=== PATIENT | female | born 1945 | race Asian ===

== ENCOUNTER 2021-10-27 13:28 | Emergency (ER) | payer MEDICARE, SELFPAY ==
--- NOTE | 2021-10-27 14:03 | CRLHL7_ITS ---
For Patients: As a result of the Century Cures Act, medical imaging exams and procedure reports are released immediately into your electronic medical record. You may view this report before your referring provider. If you have questions, please contact your health care provider. Indication: Rule out fracture Technique: Volumetric multidetector CT images of the lumbar spine were obtained without the administration of IV contrast. Comparison: None available. Findings: There is vertebra plana deformity of the T11, L1 and L2 levels with somewhat lytic destruction of the anterior aspect of the L1 and L2 levels. There is minimal retropulsion of the posterior L1 and L2 cortices measuring 7.0 and 6.0 millimeters. There is an evolving acute fracture along the anteroinferior L4 level.. There is straightening of the normal lumbar lordosis with mild focal kyphosis of the L1-L2 level. There is moderate to severe degenerative disc disease with disc height loss and marginal osteophyte formation. There is moderate spinal canal narrowing at the L1 and L2 levels. There is moderate bilateral neural foraminal narrowing at the L3-L4 and L4-L5 levels. There is no other displaced fracture or dislocation. The paraspinous soft tissues are grossly within normal limits. Impression: Demonstration of an acute compression fracture of the inferior L4 level. Chronic appearing vertebral plana fractures of the T11, L1 and L2 levels with extensive lytic changes of the anterior aspects of the L1 and L2 vertebral bodies which may represent sequela of infectious or neoplastic changes. Correlate with history of clinical symptoms. Consider follow-up with contrast enhanced MRI for improved characterization. Please note that all CT scans at this facility use dose modulation, iterative reconstruction, and/or weight-based dosing when appropriate to reduce radiation dose to as low as reasonably achievable. Dictated by David Tan MD @ 10/27/2021 3:22:03 PM (Electronically Signed)
--- NOTE | 2021-10-27 14:04 | ED_ITS ---
HPI - General Adult General Time Seen by Provider: 14:04 Date Seen: 10/27/21 Chief complaint: Back Injury/Pain Stated complaint: Back pain Time Seen by Provider: 10/27/21 13:36 Source: patient History of Present Illness HPI narrative: Gila is a 76-year-old female past medical history includes atrial fibrillation on chronic anticoagulation with Xarelto, hypertension, who presents emergency department with lower back pain. Patient states she gets around the house with a walker, at times when she sits down she thinks she hurt her lower back. This occurred about 2-3 days ago, since then she has had worsening lower back pain. Pain is lower lumbar area, midline, there is no radiation of pain, pain only occurs when she ambulates or sits up, no pain when she lays flat or sitting up. She denies any weakness, numbness or tingling of lower extremities, she denies any urinary or bowel incontinence or retention. She denies any pain and lower extremities, she denies any upper back pain, abdominal pain, she denies any urinary or bowel complaints. No history of any back problems, she does have chronic right knee issues. No new falls or injury. No other concerns at this time, she has not taken anything for it. Related Data Home Medications Medication Instructions Recorded Confirmed metoprolol succinate 100 mg 100 mg PO Q12H 10/27/21 10/27/21 tablet,extended release 24 hr potassium chloride 20 mEq 20 meq PO DAILY 10/27/21 10/27/21 tablet,extended release(part/cryst) (Klor-Con M) rivaroxaban 20 mg tablet (Xarelto) 20 mg PO DAILY 10/27/21 10/27/21 torsemide 20 mg tablet 20 mg PO DAILY 10/27/21 10/27/21 Allergies Allergy/AdvReac Type Severity Reaction Status Date / Time No Known Drug Allergies Allergy Verified 10/27/21 13:33 Review of Systems Status of ROS: Reports: 10 or more systems reviewed and unremarkable except as noted in History and below PFSH PFS Social History Smoking Status: Never smoker Second hand tobacco smoke exposure: No How often do you have a drink containing alcohol: never How often do you have six or more drinks on one occasion: Never AUDIT-C Alcohol total score: 0 Non-prescribed substance use: denies use service: No Exam Narrative: Exam Narrative: General: No obvious distress HEENT: Pupils equal round reactive to light, extraocular muscles intact Neck: Supple, full range of motion, nontender cervical spine Lungs: Clear to auscultation bilaterally Heart: Irregular regular Abdomen: Soft nontender, bowel sounds present Muscle skeletal: She is tender to palpation the lower lumbar spine, L1, L2 and L4, no step-offs or saddle anesthesia, straight leg raising at 20? negative bilaterally, +5 strength lower extremities. Normal neuro exam lower extremities. Right lower extremity: Chronic right knee externally rotated, CMS intact. Neuro: Alert awake and oriented x3 Const: Vital Signs, click to edit/add: Vital Signs - 24 hr 10/27/21 14:30 10/27/21 15:00 10/27/21 15:30 Pulse Rate [Pulse Oximeter] 73 74 82 Respiratory Rate 20 Blood Pressure [Le ft Upper Arm] 113/84 103/82 96/67 Pulse Oximetry 95 94 93 10/27/21 16:10 Pulse Rate [Pulse Oximeter] 67 Respiratory Rate 18 Blood Pressure [Le ft Upper Arm] 99/85 Pulse Oximetry 99 Course Course Hospital Course: Workup includes CT lumbar spine without IV contrast rule out compression fractures, will give her 1 g Tylenol orally and placed Lidoderm patch 5% to the area. No worrisome findings on exam, differential diagnosis includes life- threatening of cauda equina and epidural abscess. Other differentials include sprain, contusion, nerve root entrapment, radiculopathy muscle spasm urolithiasis lumbar fracture pyelonephritis as well as other etiologies Reevaluation(s) Reevaluation #1: patient updated on imaging results which showed an acute compression fracture of the inferior L4 level.Chronic appearing vertebral plana fractures of the T11, L1 and L2 levels with extensive lytic changes of the anterior aspects of the L1 and L2 vertebral bodies which may represent sequela of infectious or neoplastic changes.?Discussed further imaging with MRI to further evaluate.. Patient was in agreement. Time: 14:30 Reevaluation #2: patient was updated on her imaging results, MRI lumbar spine showed Acute/subacute compression fractures involving the L1, L2 and L4 vertebral bodies. Vertebral plana appearance of L1 and L2, with mild inferior endplate fracture at L4. Fracture clefts noted within the L1 vertebral body with mild retropulsion of the L1 and L2 vertebral body elements. Appearance favors osteoporotic type compression fracture without specific features to suggest malignancy.At T12-L1, moderate spinal canal narrowing with retropulsed fracture fragments abutting the ventral aspect of the conus medullaris. There may be subtle abnormal cord signal at the conus on the STIR sequences however not definitely reproduced on conventional T2 imaging and may be artifactual. At L1- 2, retropulsion of fracture fragments with mild spinal canal narrowing. Moderate to severe bilateral neural foraminal narrowing. L1-L5 At L1-2, retropulsion of fracture fragments with mild spinal canal narrowing. Moderate to severe bilateral neural foraminal narrowing. This was discussed with patient and significant other, patient does not have any focal neuro deficits cyst of her lower extremities making retropulsion less concerning, when trying to get patient up to try and ambulate she was unable to due to pain. Discussed admitting for observation for PT evaluation and pain control and arrange proper follow up with spine on outpatient basis. Patient declined and patient wishes to the discharged, she agreed to signing AMA after long discussion of risks involved, she is competent in sound to make her own decisions and understands the risks. She states she will follow up properly with her primary care provider. Vital Signs Vital signs: Initial Vital Signs Pulse Rate 73 10/27/21 14:30 Blood Pressure 113/84 10/27/21 14:30 Blood Pressure Mean 93 10/27/21 14:30 Blood Pressure Position Sitting 10/27/21 14:30 Pulse Oximetry 95 10/27/21 14:30 Oxygen Delivery Method 10/27/21 14:30 Vital Signs Pulse Rate 73 10/27/21 14:30 Blood Pressure 113/84 10/27/21 14:30 Pulse Oximetry 95 10/27/21 14:30 Pulse Rate 67 10/27/21 16:10 Respiratory Rate 18 10/27/21 16:10 Blood Pressure 99/85 10/27/21 16:10 Pulse Oximetry 99 10/27/21 16:10 Discharge Plan Discharge Clinical Impression: Lumbar vertebral fracture Qualifiers: Lumbar vertebra fracture level: unspecified lumbar vertebra Fracture morphology: other fracture Patient Disposition: Left Against Medical Advice Prescriptions: No Action potassium chloride [Klor-Con M20] 20 mEq tablet,ER particles/crystals 20 meq PO DAILY 0RF Xarelto 20 mg tablet 20 mg PO DAILY 0RF Label Comments: with evening meal Rx Instructions: must administer with evening meal metoprolol succinate 100 mg tablet extended release 24 hr 100 mg PO Q12H 0RF Label Comments: Take 1 Tablet by mouth 2 times daily torsemide 20 mg tablet 20 mg PO DAILY 0RF Label Comments: Take 1 Tablet by mouth once daily Stand Alone Forms: [facility] Info Instructions
[2021-10-27 14:30] VITALS: BP 113/84; PULSE 73; O2SAT 95
--- NOTE | 2021-10-27 14:33 | ED.NURSE ---
Up to bedside commode, heavy assist of two. Patient not bearing any weight.
[2021-10-27] MEDS: LIDOCAINE 5% PATCH 1 PATCH TOPICAL (14:59)
[2021-10-27] MEDS: ACETAMINOPHEN 500 MG TABLET 1000 MG PO (14:59)
[2021-10-27 15:00] VITALS: BP 103/82; PULSE 74; O2SAT 94
[2021-10-27 15:30] VITALS: BP 96/67; PULSE 82; RESP 20; O2SAT 93
--- NOTE | 2021-10-27 15:36 | CRLHL7_ITS ---
For Patients: As a result of the Century Cures Act, medical imaging exams and procedure reports are released immediately into your electronic medical record. You may view this report before your referring provider. If you have questions, please contact your health care provider. Indication: Lumbar fracture. Technique: T2, T1, and STIR sagittal as well as T1 and T2 axial sequences were obtained. No IV contrast. Comparison: CT lumbar spine 10/27/2021. Findings: There are 5 lumbar type vertebral segments identified. There are acute compression deformities involving the L1, L2 and L4 vertebral bodies. The L1 and L2 vertebral bodies demonstrated vertebral plana appearance. Fracture cleft noted throughout the central aspect of the L1 vertebral body. The L4 vertebral body demonstrates an inferior endplate fracture with approximately 10-20 % vertebral body height loss. The L1 and L2 vertebral bodies demonstrate T1 hypointense marrow edema without extension into the posterior elements. Edema is non infiltrative in appearance. Fracture cleft with fluid noted at L1. Additionally there is no evidence for extensive paraspinal infiltration. There is an additional compression fracture involving the T11 vertebral body, without edema and appears chronic. This also demonstrates a vertebral plana appearance. Exaggerated kyphosis at the L1 level. The conus medullaris terminates at L1-2, normal. Cauda equina appears unremarkable. T12-L1: Retropulsion of L1 fracture fragments into the spinal canal resulting in moderate spinal canal narrowing and abutting the ventral aspect of the conus medullaris. There may be subtle cord signal change at the conus on the STIR sequences, however is not reproduced on the conventional T2 sequences. Severe right with mild left neural foraminal narrowing. L1-2: Retropulsion of vertebral body elements with resultant mild spinal canal narrowing. Moderate to severe bilateral neural foraminal narrowing. L2-3: No spinal canal narrowing. Moderate bilateral neural foraminal narrowing secondary to disc bulge and facet hypertrophy. L3-4: No spinal canal narrowing. Mild to moderate left and mild right neural foraminal narrowing secondary to disc bulging facet hypertrophy. L4-5: No spinal canal narrowing. Moderate to severe left and mild right neural foraminal narrowing secondary to disc bulge and facet hypertrophy. L5-S1: No spinal canal narrowing. Mild bilateral neural foraminal narrowing. Impression: 1. Acute/subacute compression fractures involving the L1, L2 and L4 vertebral bodies. Vertebral plana appearance of L1 and L2, with mild inferior endplate fracture at L4. 2. Fracture clefts noted within the L1 vertebral body with mild retropulsion of the L1 and L2 vertebral body elements. Appearance favors osteoporotic type compression fracture without specific features to suggest malignancy. 3. At T12-L1, moderate spinal canal narrowing with retropulsed fracture fragments abutting the ventral aspect of the conus medullaris. There may be subtle abnormal cord signal at the conus on the STIR sequences however not definitely reproduced on conventional T2 imaging and may be artifactual. 4. At L1-2, retropulsion of fracture fragments with mild spinal canal narrowing. Moderate to severe bilateral neural foraminal narrowing. 5. At L2-3, moderate bilateral neural foraminal narrowing. 6. At L3-4, mild to moderate left and mild right neural foraminal narrowing. 7. At L4-5, moderate to severe left and mild right neural foraminal narrowing. The above findings were communicated over the telephone with Dr. Francis Gabriel by Dr. Patiño at 1747 hours on 10/27/2021. Dictated by Van Patiño MD @ 10/27/2021 5:49:52 PM (Electronically Signed)
[2021-10-27 16:10] VITALS: BP 99/85; PULSE 67; RESP 18; O2SAT 99
--- NOTE | 2021-10-27 18:02 | ED.NURSE ---
dc to home. signed ama. will take tylenol 1000 mg every 8 hours as needed for pain.
== END 2021-10-27 17:50 | disposition left against medical advice (07) ==
PROVIDERS: Emergency Provider Student in an Organized Health Care Education/Training Program; PCP Nurse Practitioner Family
DX: S32.019A Unspecified fracture of first lumbar vertebra, initial encounter for closed fracture (principal); S32.029A Unspecified fracture of second lumbar vertebra, initial encounter for closed fracture
CPT/HCPCS: 72131; 72148; 99283; A9270

== ENCOUNTER 2021-11-08 21:42 | Inpatient (IN) | payer MEDICARE, SELFPAY ==
--- NOTE | 2021-11-08 | CRLHL7_ITS ---
For Patients: As a result of the Century Cures Act, medical imaging exams and procedure reports are released immediately into your electronic medical record. You may view this report before your referring provider. If you have questions, please contact your health care provider. INDICATION: Fall, neck pain. TECHNIQUE: CT cervical spine without contrast. COMPARISON: None FINDINGS: Vertebrae: Limited evaluation secondary to motion artifact, patient body habitus, and osteopenia. No acute displaced fracture or traumatic malalignment. Discs and facet joints: Multilevel endplate degenerative changes, worst at the levels of C5-C7. Anatomic alignment of the bilateral facet joints. Extraspinal findings: Prevertebral soft tissues are within normal limits. Visualized airway is patent. Lung apices are grossly clear. IMPRESSION: Within limitations as above, no evidence of acute displaced fracture or traumatic malalignment of the cervical spine. Please note that all CT scans at this facility use dose modulation, iterative reconstruction, and/or weight-based dosing when appropriate to reduce radiation dose to as low as reasonably achievable. Dictated by Kyle Figueredo MD @ 11/08/2021 11:17:35 PM (Electronically Signed)
--- NOTE | 2021-11-08 | CRLHL7_ITS ---
For Patients: As a result of the Cures Act, medical imaging exams and procedure reports are released immediately into your electronic medical record. You may view this report before your referring provider. If you have questions, please contact your health care provider. INDICATION: Trauma, fall. On blood thinners. TECHNIQUE: CT head without contrast. COMPARISON: None. FINDINGS: Cerebral parenchyma: No evidence of acute territorial infarct. No acute intraparenchymal hemorrhage. No significant mass effect/midline shift. Normal calabrese-white matter differentiation. Extra-axial spaces: No extra-axial collection or hemorrhage. Ventricles: Mild ex vacuo dilation. Calvarium: Small right occipital scalp hematoma. Visualized paranasal sinuses/mastoid air cells: Grossly clear. Posterior fossa: No cerebellar tonsillar herniation. Visualized orbits: Thinning of the left lens. No acute abnormality. IMPRESSION: 1. No acute intracranial abnormality. Specifically, no evidence of acute intracranial hemorrhage. 2. Small right occipital scalp hematoma. Please note that all CT scans at this facility use dose modulation, iterative reconstruction, and/or weight-based dosing when appropriate to reduce radiation dose to as low as reasonably achievable. Dictated by Kyle Figueredo MD @ 11/08/2021 11:08:38 PM (Electronically Signed)
[2021-11-08 21:50] VITALS: BP 135/94
[2021-11-08 21:51] VITALS: BP 135/94; PULSE 85; TEMP 36.3; O2SAT 97; BMI 23.9
[2021-11-08 22:00] VITALS: BP 129/84; PULSE 80; O2SAT 97
[2021-11-08 22:30] VITALS: BP 140/82; PULSE 79; O2SAT 98
[2021-11-08 23:00] VITALS: BP 134/92; PULSE 91; O2SAT 93
--- NOTE | 2021-11-08 23:12 | ED.GENADULT ---
HPI - General Adult General Time Seen by Provider: 21:30 Date Seen: 11/08/21 Chief complaint: Head Injury/Pain Stated complaint: HEAD INJURY Time Seen by Provider: 11/08/21 22:21 Source: patient, family, RN notes reviewed and old records reviewed Mode of arrival: EMS Limitations: no limitations History of Present Illness HPI narrative: Gila is a very pleasant 76-year-old female with known lumbar compression fractures with narrowing of the spinal canal who comes to the emergency room via EMS after having fallen at home. EMS notes that Gila has her mattress on the floor and was trying to transfer to a wheelchair and fell striking the back of her head. Patient is on Xarelto. Fortunately, she did not lose consciousness. She denies neck pain. Gila is very challenging as she minimizes symptoms. Gila was here on October 27 at which time the fractures were discovered. MRI did show narrowing of the spinal canal with some retropulsion of fragments at L1-2. It was suggested that she stay in the hospital but she signed out AMA. This time her becomes quite angry with her and states that she is staying and that if she wants to leave she will have to crawl out on her own. She states that she will stay here tonight if needed. Patient denies neck pain, chest pain, shortness of breath. Her says that she has gotten much weaker since the . It seems that this has been progressive. She denies loss of sensation. Related Data Home Medications Medication Instructions Recorded Confirmed metoprolol succinate 100 mg 100 mg PO Q12H 10/27/21 11/08/21 tablet,extended release 24 hr potassium chloride 20 mEq 20 meq PO DAILY 10/27/21 11/08/21 tablet,extended release(part/cryst) (Klor-Con M) rivaroxaban 20 mg tablet (Xarelto) 20 mg PO DAILY 10/27/21 11/08/21 torsemide 20 mg tablet 20 mg PO DAILY 10/27/21 11/08/21 Allergies Allergy/AdvReac Type Severity Reaction Status Date / Time No Known Drug Allergies Allergy Verified 10/27/21 13:33 Review of Systems Status of ROS: Reports: unobtainable due to mental status Narrative: Patient denies loss of consciousness. She does note the back of her head hurts but denies headache. Patient denies neck pain Patient denies chest pain, shortness of breath, abdominal pain. She does admit that her legs are little bit weaker than before but denies any loss of sensation. Review of systems very challenging as people patient is minimizing symptoms. [facility] Medical History Atrial fibrillation with rapid ventricular response Dementia HFrEF (heart failure with reduced ejection fraction) Hypertension Right knee pain Stage 3 chronic kidney disease Surgical History History of left cataract surgery Social History Narrative: She lives with her . He is her primary caregiver. He reports he has been very difficult due to her immobility. Smoking Status: Never smoker Second hand tobacco smoke exposure: No How often do you have a drink containing alcohol: never How often do you have six or more drinks on one occasion: Never AUDIT-C Alcohol total score: 0 Non-prescribed substance use: denies use service: No Exam Const: Vital Signs, click to edit/add: Vital Signs - 24 hr 11/08/21 21:51 Temperature 97.3 F L Pulse Rate [Right Pulse Oximeter] 85 Blood Pressure [Le ft Upper Arm] 135/94 H Pulse Oximetry 97 Patient is awake and alert. She is very quick to minimize any symptoms. Her eyes are clear and EOM is full. She has some slight cloudiness to the right eye. This is chronic. She has a 2 cm area of edema on her a septal scalp. Skin is intact. Neck is supple without midline tenderness. Heart is with regular rate and rhythm at this time. Lungs are clear bilaterally. Abdomen soft nontender. Upper extremity strength intact. Lower extremities extremity, from eyes. Patient is unable to flex at hips or bend her knees. From the bed. Ankle strength 4/5. Right ankle slightly weaker than left. Scant peripheral edema. Course Course Hospital Course: Review of previous MRI noted to have retropulsed fracture fragments at L1-2 narrowing the canal. There has been ongoing decreasing strength in the lower extremities. Patient initially states that she does not want to stay but her becomes quite a rate and tells her that she will have to crawl out of the hospital if she wants to come home. He agrees to stay for the night. I will speak to Dr. Gramajo about observation with MRI repeat tomorrow morning. Vital Signs Vital signs: Initial Vital Signs Temperature 97.3 F L 11/08/21 21:51 Temperature Source Temporal Artery Scan 11/08/21 21:51 Pulse Rate 85 11/08/21 21:51 Blood Pressure 135/94 H 11/08/21 21:51 Blood Pressure Mean 107 11/08/21 21:51 Blood Pressure Position Supine 11/08/21 21:51 Pulse Oximetry 97 11/08/21 21:51 Oxygen Delivery Method 11/08/21 21:51 Vital Signs Temperature 97.3 F L 11/08/21 21:51 Pulse Rate 85 11/08/21 21:51 Blood Pressure 135/94 H 11/08/21 21:51 Pulse Oximetry 97 11/08/21 21:51 Temperature 97.3 F L 11/08/21 21:51 Pulse Rate 85 11/08/21 21:51 Blood Pressure 135/94 H 11/08/21 21:51 Pulse Oximetry 97 11/08/21 21:51 Medical Decision Making MDM Narrative Medical decision making narrative: 1. Lower extremity weakness-likely secondary to recent multilevel lumbar fractures. Hospitalization with MRI repeat in the morning. This does not appear to be acute this evening. 2. History of congestive heart failure 3. History of atrial fibrillation with RVR currently on Xarelto. Rate controlled this evening with a pulse of 85. 4. Disposition-patient was admitted under the care of Dr. Gramajo, hospitalist.
[2021-11-08 23:30] VITALS: BP 122/107
--- NOTE | 2021-11-08 23:48 | P.IMHP_ITS ---
Hospitalist- H&P: HPI History of Present Illness Date Seen: 11/08/21 Chief complaint: HEAD INJURY Narrative: Gila Carson is a 76 year old female admitted through the emergency room after a fall at home. With that fall she hit her head. She is on anticoagulation. Emergency department evaluation showed no intracranial injury, bleeding or cervical fracture. While she was here her notes that she has been doing very poorly since October 27 when she fell sustaining lumbar com pression fracture. Prior to that fall on October 27 she was getting around with a walker. Since then she has been unable to stand and walk and is wheelchair bound. He believes her weakness is getting progressively worse and he is concerned about his ability to manage her care. She has dementia and has been insisting on going home. Similar circumstance developed last year when she was hospitalized for heart failure in November 2020. She initially left AMA but then returned to the hospital because of difficulty breathing. Her is her primary and only caregiver. He is insisting now that she stay in the hospital against her will. Review of Systems Narrative: Patient denies any concerns or problems. This includes denying that she has any back pain though she refuses to sit up in bed due to pain. Her only concern is to leave the hospital to go home. Her notes that she has generally been doing well except for the disability associated with her back pain and lower extremity weakness. There have been concerns about urinary frequency. On October 18 she had a urinalysis which was normal. She had recent left cataract surgery and is pending right cataract surgery. [facility] Medical History Atrial fibrillation with rapid ventricular response Dementia HFrEF (heart failure with reduced ejection fraction) Hypertension Right knee pain Stage 3 chronic kidney disease Surgical History History of left cataract surgery Social History (Updated 11/08/21 @ 23:59 by Ted Gramajo MD) Narrative: She lives with her . He is her primary caregiver. He reports he has been very difficult due to her immobility. Smoking Status: Never smoker Second hand tobacco smoke exposure: No How often do you have a drink containing alcohol: never How often do you have six or more drinks on one occasion: Never AUDIT-C Alcohol total score: 0 Non-prescribed substance use: denies use service: No Meds Home Medications and Allergies Home Medications Medication Instructions Recorded Confirmed Type metoprolol succinate 100 mg 100 mg PO Q12H 10/27/21 11/08/21 History tablet,extended release 24 hr potassium chloride 20 mEq 20 meq PO DAILY 10/27/21 11/08/21 History tablet,extended release(part/cryst) (Klor-Con M) rivaroxaban 20 mg tablet (Xarelto) 20 mg PO DAILY 10/27/21 11/08/21 History torsemide 20 mg tablet 20 mg PO DAILY 10/27/21 11/08/21 History Allergies Allergy/AdvReac Type Severity Reaction Status Date / Time No Known Drug Allergies Allergy Verified 10/27/21 13:33 Exam Narrative: Exam Narrative: She is alert and appears in no distress. Head is without obvious trauma. Eyes notable for a dense cataract in the right eye and none in the left eye. Extraocular movements are full. Visual davis are intact. There is no facial asymmetry. Oropharynx with loss of teeth. Dry mucous membranes. No mucosal abnormalities. No facial asymmetry. Neck is supple without mass or adenopathy. Respirations are clear to auscultation. Cardiovascular: S1, S2, irregularly irregular. 1/6 systolic ejection murmur. No gallop or rub. Abdomen: Bowel sounds active. Abdomen is soft without tenderness. She has a large umbilical hernia which is nontender and easily reduced. External genitalia normal. Inspection of her back is normal. She reports the pain is in her low back area. There is no apparent trauma or bruising in this area. She refuses to sit up in bed secondary to pain. Lower extremities are examined. She has some swelling around her right knee but no redness or warmth. She does not tolerate any movement in her right knee secondary to chronic right knee pain by her account. No other obvious trauma in her lower extremities. Her feet have chronic deformities from pronation and she also has notable onycholysis/onychomycosis. Intact pedal pulses. No significant edema. She can barely lift her left foot off the bed. She is unable to lift her right heel off the bed secondary to knee pain. She does not tolerate passive flexion of that right hip because of knee pain as well. She poorly tolerates strength testing in her left knee as well. Bilateral ankle flexion and extension is symmetric and fairly normal Great toe dorsiflexion bilaterally is also symmetric and fairly normal. Subjective intact sensation in both feet. Const: Vital Signs, click to edit/add: Vital Signs - 24 hr 11/08/21 21:51 Temperature 97.3 F L Pulse Rate [Right Pulse Oximeter] 85 Blood Pressure [Le ft Upper Arm] 135/94 H Pulse Oximetry 97 Documenting provider has reviewed patient's vital signs: yes Hospitalist - H&P: Result Imaging MRI lumbar spine: Radiologist's impression: [address] [address] Diagnostic Imaging Report Patient: Gila Carson MR#: [id number] : 1945 Acct:[id number] Loc: ED Service Date: 10/27/[address]: Ordering Physician: Francis Gabriel M.D. Date of Service: 10/27/21 Procedure(s): MR lumbar spine wo con Accession Number(s): [id number] cc: Jennifer Sanchez CNP, OUTREACH AND EDUCATION SOCIAL WORKER; Francis Gabriel M.D.~ For Patients:? As a result of the Cures Act, medical imaging exams and procedure reports are released immediately into your electronic medical record.? You may view this report before your referring provider.? If you have questions, please contact your health care provider. Indication: Lumbar fracture. Technique: T2, T1, and STIR sagittal as well as T1 and T2 axial sequences were obtained. No IV contrast. Comparison: CT lumbar spine 10/27/2021. Findings: There are 5 lumbar type vertebral segments identified. There are acute compression deformities involving the L1, L2 and L4 vertebral bodies. The L1 and L2 vertebral bodies demonstrated vertebral plana appearance. Fracture cleft noted throughout the central aspect of the L1 vertebral body. The L4 vertebral body demonstrates an inferior endplate fracture with approximately 10-20 % vertebral body height loss. The L1 and L2 vertebral bodies demonstrate T1 hypointense marrow edema without extension into the posterior elements. Edema is non infiltrative in appearance. Fracture cleft with fluid noted at L1. Additionally there is no evidence for extensive paraspinal infiltration. There is an additional compression fracture involving the T11 vertebral body, without edema and appears chronic. This also demonstrates a vertebral plana appearance. Exaggerated kyphosis at the L1 level. The conus medullaris terminates at L1-2, normal. Cauda equina appears unremarkable. T12-L1: Retropulsion of L1 fracture fragments into the spinal canal resulting in moderate spinal canal narrowing and abutting the ventral aspect of the conus medullaris. There may be subtle cord signal change at the conus on the STIR sequences, however is not reproduced on the conventional T2 sequences. Severe right with mild left neural foraminal narrowing. L1-2: Retropulsion of vertebral body elements with resultant mild spinal canal narrowing. Moderate to severe bilateral neural foraminal narrowing. L2-3: No spinal canal narrowing. Moderate bilateral neural foraminal narrowing secondary to disc bulge and facet hypertrophy. L3-4:? No spinal canal narrowing. Mild to moderate left and mild right neural foraminal narrowing secondary to disc bulging facet hypertrophy. L4-5: No spinal canal narrowing. Moderate to severe left and mild right neural foraminal narrowing secondary to disc bulge and facet hypertrophy. L5-S1:? No spinal canal narrowing. Mild bilateral neural foraminal narrowing. Impression: 1. Acute/subacute compression fractures involving the L1, L2 and L4 vertebral bodies. Vertebral plana appearance of L1 and L2, with mild inferior endplate fracture at L4. 2. Fracture clefts noted within the L1 vertebral body with mild retropulsion of the L1 and L2 vertebral body elements. Appearance favors osteoporotic type compression fracture without specific features to suggest malignancy. 3. At T12-L1, moderate spinal canal narrowing with retropulsed fracture fragments abutting the ventral aspect of the conus medullaris. There may be subtle abnormal cord signal at the conus on the STIR sequences however not definitely reproduced on conventional T2 imaging and may be artifactual. 4. At L1-2, retropulsion of fracture fragments with mild spinal canal narrowing. Moderate to severe bilateral neural foraminal narrowing. 5. At L2-3, moderate bilateral neural foraminal narrowing. 6. At L3-4, mild to moderate left and mild right neural foraminal narrowing. 7. At L4-5, moderate to severe left and mild right neural foraminal narrowing. The above findings were communicated over the telephone with Dr. Francis Gabriel by Dr. Patiño at 1747 hours on 10/27/2021. Dictated by Van Patiño MD @ 10/27/2021 5:49:52 PM (Electronically Signed) Assessment and Plan Assessment and plan (1) Lumbar vertebral fracture: Status: Acute Assessment and Plan: Lower extremity weakness by history is significantly worse. Repeat MRI to assess for progressive neurologic disease. Clinically difficult to assess weakness due to dementia, poor cooperation and relatively severe right knee pain. Not a very good surgical candidate due to dementia and comorbid medical conditions. (2) Right knee pain: Status: Acute Assessment and Plan: Appears to be primarily osteoarthritis. Obtain plain x-rays to further evaluate. This appears to be significant contributor to her disability (3) Atrial fibrillation with rapid ventricular response: Status: Acute Assessment and Plan: Has fairly good rate control and on anticoagulation. Check creatinine and adjust rivaroxaban dose for renal function (4) HFrEF (heart failure with reduced ejection fraction): Problem comment: Echocardiogram 03/21/2021 shows severely decreased left ventricular systolic function with an ejection fraction of 25%. Right ventricle size is normal and function is reduced. No significant valvular disease Status: Acute Assessment and Plan: Appears to be fairly well compensated now. (5) Dementia: Status: Acute Assessment and Plan: Dementia plus patient's reluctance to be in the hospital is challenging for her to care for her at home and for us to care for her in the hospital.
[2021-11-09] VITALS (10 sets, daily range): BP systolic 102–143; BP diastolic 72–110; PULSE 76–107; RESP 16–20; TEMP 36.2–36.9; O2SAT 94–98; BMI 21.8
[2021-11-09] MEDS: ACETAMINOPHEN 500 MG TABLET 1000 MG PO ×4 (01:10→21:11)
--- NOTE | 2021-11-09 01:40 | PC.NURSE ---
Addendum entered by Dani Romero RN 11/09/21 06:09: Pt was able to ambulate to BR w/A1+W slowly. After that needed w/c to get back in bed but did better than on admit Original Note: Admitted to room 245. VSS RA. HR irregular. Declined to take Lopressor but was given Tylenol ES 1g given as non scheduled administration for the back pain. Up to BSC w/heavy A2, was here to help. A2 w/bed mobility. Pt is oriented to PPT more or less but seems to have some sort of dementia or something like that.
--- NOTE | 2021-11-09 06:22 | PC.NURSE ---
admitted today with head trauma post a fall with high risk for a bleed due to use of Xarelto. Alert and oriented to self and place. Very forgetful of situations and time; needs reminders. Moving all extrimeites fine. PERRLA. EOM intact. Face is symeric. Vitals stable. Generally weak needing extensive assist to transfer and ambulation using a walker. No new neuro changes noted overnight
[2021-11-09 07:27] LABS: Basophils Percent Auto 0.4 % (0.0-3.0); Hematocrit 44.8 % (33.0-51.0); Hemoglobin* 14.8 gm/dL (12.0-16.0); Immature Granulocytes Abs Auto 0.03 K/uL (0.00-0.30); Lymphocytes Percent Auto 24.8 % (20-44); Mean Corpuscular HGB Conc 33 gm/dL (32-36); Mean Corpuscular Hemoglobin 31 pg (26-34); Mean Corpuscular Volume 94 fL (80-100); Monocytes Percent Auto 5.1 % (0.0-11.0); Neutrophils Percent Auto 67.4 % (42.0-72.0); Platelet Count* 325 K/uL (140-440); RDW Coefficient of Variation % 13.7 % (11.5-15.5); Red Blood Count 4.75 m/uL (4.00-5.20); White Blood Count* 11.51 K/uL (4.50-11.00)
[2021-11-09 07:42] LABS: Slide Review Reflex No
[2021-11-09 07:45] LABS: Chloride* 107 mmol/L (96-114); Potassium* 3.6 mmol/L (3.6-5.1); Sodium* 139 mmol/L (135-149)
[2021-11-09 07:47] LABS: Creatinine* 0.9 mg/dL (0.5-1.5); Est. Creatinine Clearance* 38.97; Estimated Glomerular Filt Rate 66 ml/min
[2021-11-09 07:48] LABS: Blood Urea Nitrogen* 18 mg/dL (7-30); Carbon Dioxide* 28 mmol/L (20-32); Glucose* 117 mg/dL (60-115)
[2021-11-09 07:49] LABS: Calcium* 9.1 mg/dL (8.4-10.6); Magnesium* 2.3 mg/dL (1.5-2.6)
[2021-11-09 07:51] LABS: C Reactive Protein* 0.7 mg/dL (0.5-1.0)
[2021-11-09] MEDS: TORSEMIDE 20 MG TABLET PO (09:45)
[2021-11-09] MEDS: POTASSIUM CHLORIDE 10 MEQ CAPSULE ER 20 MEQ PO (09:45)
[2021-11-09] MEDS: RIVAROXABAN 10 MG TABLET 15 MG PO (09:46)
[2021-11-09] MEDS: SENNOSIDES 1 TAB TABLET 2 TAB PO ×2 (09:47→21:11)
[2021-11-09] MEDS: METOPROLOL SUCCINATE (XL) 100 MG TAB PO ×2 (09:48→21:11)
--- NOTE | 2021-11-09 11:03 | PM.IMPN1 ---
Progress Note: A&P Assessment and plan (1) Lumbar vertebral fracture: Status: Acute Assessment and Plan: patient can ambulate with walker. she has no trunk strength to stand, two assist under the arms to get her up, once up she can shuffle with no obvious weakness or foot drop. at this point, any intervention would cause more complications/more risk than benefit. discussed with both patient and . pain management, therapies needed. will add calcitonin, tylenol to regimen (2) Right knee pain: Status: Acute Assessment and Plan: significant valgus deformity. no redness. OA. continue to monitor, therapies, bracing if tolerated. (3) Atrial fibrillation with rapid ventricular response: Status: Acute Assessment and Plan: rate controlled. will hold OAC as she is falling repeatedly and has scalp hematoma currently. risk outweighs benenfit. (4) HFrEF (heart failure with reduced ejection fraction): Problem details: Echocardiogram 03/21/2021 shows severely decreased left ventricular systolic function with an ejection fraction of 25%. Right ventricle size is normal and function is reduced. No significant valvular disease Status: Acute (5) Dementia: Status: Acute Assessment and Plan: severe. 12/04 MOCA 6, today MOCA 8. will need placement. will start Celexa 10 mg and prn Olanzapine p.r.n. delusions and agitation Subjective Date Seen: 11/09/21 Interval history: Daily Progress Note - Hospital Medicine Day #: 2 CC: continued pain, confusion, significant fall risk due to dementia OVERNIGHT UPDATES FROM STAFF & MED, LAB, IMAGING UPDATES patient becomes more confused and agitated when her is not bedside. He swears, the BS she comes and goes in the BS is here again. I'm fine. I want to go home Patient is receiving oral oxycodone for pain. She is a significant 2 person assist. She can ambulate with the walker and cues. However, she sits quickly and unpredictably regardless if it is safe. She is complaining of weakness, right knee pain, and back pain. Her imaging from 10/27 and the concern at the T12/L1 spinal cord impingement is reviewed. The findings also at L2 and L4 are noted. Significant osteoporosis and compression fractures with fracture segments noted. 143/103 Pulse 86 Afebrile On room air Mild leukocytosis, 11.5 BMP unremarkable CRP, calcium, Mag all normal Head CT other than right occipital hematoma was reassuring. Significant motion artifact in her cervical spine CT but otherwise negative. Lumbar MRI from October 27 reviewed. 1. Acute/subacute compression fractures involving the L1, L2 and L4 vertebral bodies. Vertebral plana appearance of L1 and L2, with mild inferior endplate fracture at L4. 2. Fracture clefts noted within the L1 vertebral body with mild retropulsion of the L1 and L2 vertebral body elements. Appearance favors osteoporotic type compression fracture without specific features to suggest malignancy. 3. At T12-L1, moderate spinal canal narrowing with retropulsed fracture fragments abutting the ventral aspect of the conus medullaris. There may be subtle abnormal cord signal at the conus on the STIR sequences however not definitely reproduced on conventional T2 imaging and may be artifactual. 4. At L1-2, retropulsion of fracture fragments with mild spinal canal narrowing. Moderate to severe bilateral neural foraminal narrowing. 5. At L2-3, moderate bilateral neural foraminal narrowing. 6. At L3-4, mild to moderate left and mild right neural foraminal narrowing. 7. At L4-5, moderate to severe left and mild right neural foraminal narrowing. Med reviewed: Continues on Xarelto, and her other home medications Review of Systems: See subjective Cardiac: No new chest pain/pressure/palpitations. Respiratory: no new dyspnea. GI: No abdominal bloating Objective: Vitals: see above Lungs: Clear. Cardiac: S1S2. Disposition/Potential discharge - Likely to return to previous living situation. Total time is 70 minutes with greater than 50% spent in counseling and coordination of care. Exam Const: Vital Signs, click to edit/add: Vital Signs - 24 hr 11/08/21 21:50 11/08/21 21:51 11/08/21 22:00 Temperature 97.3 F L Pulse Rate [Left R adial] Pulse Rate [Right Pulse Oximeter] 85 80 Respiratory Rate Blood Pressure [Le ft Arm] Blood Pressure [Le ft Upper Arm] 135/94 H 135/94 H 129/84 Pulse Oximetry 97 97 11/08/21 22:30 11/08/21 23:00 11/08/21 23:30 Temperature Pulse Rate [Left R adial] Pulse Rate [Right Pulse Oximeter] 79 91 Respiratory Rate Blood Pressure [Le ft Arm] Blood Pressure [Le ft Upper Arm] 140/82 H 134/92 H 122/107 H Pulse Oximetry 98 93 11/09/21 00:00 11/09/21 00:41 11/09/21 01:24 Temperature 98.0 F Pulse Rate [Left R adial] 97 Pulse Rate [Right Pulse Oximeter] 107 H Respiratory Rate 16 16 Blood Pressure [Le ft Arm] 114/88 Blood Pressure [Le ft Upper Arm] 130/110 H Pulse Oximetry 98 98 98 11/09/21 03:00 11/09/21 07:54 11/09/21 08:15 Temperature 98.0 F 98.4 F Pulse Rate [Left R adial] 86 86 Pulse Rate [Right Pulse Oximeter] Respiratory Rate 16 20 20 Blood Pressure [Le ft Arm] 138/85 143/103 H Blood Pressure [Le ft Upper Arm] Pulse Oximetry 98 95 Labs Labs: Laboratory Results - last 24 hr 11/09/21 11/09/21 06:14 06:14 WBC 11.51 H RBC 4.75 Hgb 14.8 Hct 44.8 MCV 94 MCH 31 MCHC 33 RDW Coeff of Andres 13.7 Plt Count 325 Neut % (Auto) 67.4 Lymph % (Auto) 24.8 Douglas % (Auto) 5.1 Eos % (Auto) 2.0 Baso % (Auto) 0.4 Neut # (Auto) 7.80 H Lymph # (Auto) 2.90 Douglas # (Auto) 0.60 Eos # (Auto) 0.20 Baso # (Auto) 0.00 Abs Immat Gran (auto) 0.03 Sodium 139 Potassium 3.6 Chloride 107 Carbon Dioxide 28 BUN 18 Creatinine 0.9 Estimated Creat Clear 38.97 Estimated GFR 66 Glucose 117 H Calcium 9.1 Magnesium 2.3 C-Reactive Protein 0.7
[2021-11-09] MEDS: OLANZapine 5 MG TAB.RAPDIS PO (14:10)
--- NOTE | 2021-11-09 15:12 | PC.SOCIAL ---
Met with pt.'s spouse Luis Felipe. Pt. has dementia, 12/13 on her MOCA and he has been her caregiver for a number of years. Pt. fell on the 10/27 and again on 11/08 and has a lumbar fracture. Luis Felipe hurt his back trying to help transfer her. Pt is currently a two person transfer. They are from [place] and prefer placement in [place], [place], [place] or [place]. [place] and [place] have no availability and a message was left with [place]. Te[facility] in [place] at [phone], fax# [phone] has a bed and is assessing. Messages were also left with [facility] phone [phone], fax#[phone] and [facility] [phone], and pt.'s information was faxed there as well. Luis Felipe plans to be in tomorrow morning around 9-10 for an update.
--- NOTE | 2021-11-09 18:54 | PC.NURSE ---
: Pt. up w/heavy assist x2 this morning w/walker/belt and assist of 1-2 this afternoon. Minimizes all symptoms, and denies pain, but appears in pain at times. Taking scheduled meds w/out issue. Pt. verbally expresses frustration with current situation, but easily redirected by staff. Frequently calling out this afternoon after spouse left. Olanzapine administered x1 with some relief. Tolerating about 50% of meals today. Up frequently to BR.
--- NOTE | 2021-11-09 20:55 | PC.NURSE ---
Spoke with Dr. Gramajo via telephone to confirm Metoprolol dose at HS B/P 106/79, HR 76. would like this given.
[2021-11-09] MEDS: CALCITONIN SALMON NASAL SPRAY 200 UNIT 1 SPRAY NOSTRIL-B (21:11)
[2021-11-10 03:00] VITALS: BP 111/96; PULSE 66; RESP 20; TEMP 36.9; O2SAT 97
[2021-11-10] MEDS: OLANZapine 5 MG TAB.RAPDIS PO ×3 (04:22→20:06)
--- NOTE | 2021-11-10 05:07 | PC.NURSE ---
Shift 7p-7a: Pt. alert, oriented to self, but follows commands intermittently. VSS on RA. Pt. dangled off side of bed and ambulated to bathroom multiple times with Ax2 w/ RW and gait belt. Pt. is still weak in extremities with sluggish movements. Pt. requires bed alarm as she has attempted to get out of bed several times during shift. Pt. had 1 BM in bedside commode, voiding without difficulties. Plan is to look for placement (maybe [facility], [place]) after pt. leaves hospital to help with mobility and ADL's
[2021-11-10 07:45] VITALS: BP 112/77; PULSE 73; RESP 20; TEMP 36.6; O2SAT 95
[2021-11-10] MEDS: CITALOPRAM HYDROBROMIDE 20 MG TABLET 10 MG PO (09:31)
[2021-11-10] MEDS: POTASSIUM CHLORIDE 10 MEQ CAPSULE ER 20 MEQ PO (09:31)
[2021-11-10] MEDS: TORSEMIDE 20 MG TABLET PO (09:32)
[2021-11-10] MEDS: ACETAMINOPHEN 500 MG TABLET 1000 MG PO ×2 (09:32→20:04)
[2021-11-10] MEDS: METOPROLOL SUCCINATE (XL) 100 MG TAB PO ×2 (09:33→20:05)
[2021-11-10] MEDS: SENNOSIDES 1 TAB TABLET 2 TAB PO (09:33)
--- NOTE | 2021-11-10 10:28 | REH.PT ---
Attempted to see pt this am for PT treatment. Pt refused PT treatment at this time saying she was too busy and not a good time, maybe tomorrow. Will follow up
--- NOTE | 2021-11-10 11:12 | PC.NURSE ---
Nurse [facility] nurse [facility]
[2021-11-10 12:40] VITALS: BP 111/91; PULSE 71; RESP 20; TEMP 36.9; O2SAT 99
[2021-11-10 15:00] VITALS: RESP 20
--- NOTE | 2021-11-10 15:21 | P.IMPN_ITS ---
Progress Note: A&P Assessment and plan (1) Lumbar vertebral fracture: Status: Acute Assessment and Plan: Osteoporotic. Severe. Pain controlled with Tylenol, Miacalcin nasal spray, sparingly needed oxycodone. Receives PT and OT therapies. (2) Right knee pain: Status: Acute Assessment and Plan: Osteoarthritis, significant valgus deformity (3) Atrial fibrillation with rapid ventricular response: Status: Acute Assessment and Plan: Stable and previously on oral anticoagulation - held secondary to recent falls (4) HFrEF (heart failure with reduced ejection fraction): Problem details: Echocardiogram 03/21/2021 shows severely decreased left ventricular systolic function with an ejection fraction of 25%. Right ventricle size is normal and function is reduced. No significant valvular disease Status: Acute Assessment and Plan: Stable (5) Dementia: Status: Acute Assessment and Plan: Severe. [place] 6 and 8 in the last year. Starting olanzapine scheduled 5 mg b.i.d., trazodone and melatonin at night, just started Celexa for mood. Plan Generally speaking, I would like to get the patient in memory care with custodial/therapies. She does not strike out or jump up. Her mobility is limited. She does curse but is typically miss directed secondary to confusion and dementia. Some of the time it seems directed at her and she does better when he is not bedside. Subjective Date Seen: 11/10/21 Interval history: Daily Progress Note - Hospital Medicine Day #: 3 CC: continued pain, confusion, significant fall risk due to dementia OVERNIGHT UPDATES FROM STAFF & MED, LAB, IMAGING UPDATES Pressure 111/96 Pulse 66 Afebrile Room air No new labs or imaging today Reviewed meds. Olanzapine has very mild effect. Patient still yells out but does not strike or have aggressive movements. It seems as if sometimes when her is present he is the target of a lot of her mood and adjustment issues. Think her pain is better controlled as she is complaining less. Imaging was reviewed Head CT other than right occipital hematoma was reassuring. Significant motion artifact in her cervical spine CT but otherwise negative. Lumbar MRI from October 27 reviewed. 1. Acute/subacute compression fractures involving the L1, L2 and L4 vertebral bodies. Vertebral plana appearance of L1 and L2, with mild inferior endplate fracture at L4. 2. Fracture clefts noted within the L1 vertebral body with mild retropulsion of the L1 and L2 vertebral body elements. Appearance favors osteoporotic type compression fracture without specific features to suggest malignancy. 3. At T12-L1, moderate spinal canal narrowing with retropulsed fracture fragments abutting the ventral aspect of the conus medullaris. There may be subtle abnormal cord signal at the conus on the STIR sequences however not definitely reproduced on conventional T2 imaging and may be artifactual. 4. At L1-2, retropulsion of fracture fragments with mild spinal canal narrowing. Moderate to severe bilateral neural foraminal narrowing. 5. At L2-3, moderate bilateral neural foraminal narrowing. 6. At L3-4, mild to moderate left and mild right neural foraminal narrowing. 7. At L4-5, moderate to severe left and mild right neural foraminal narrowing. Med reviewed: Continues on Xarelto, and her other home medications Added olanzapine, Celexa, calcitonin nasal spray, Tylenol in trazodone with melatonin Review of Systems: See subjective Cardiac: No new chest pain/pressure/palpitations. Respiratory: no new dyspnea. GI: No abdominal bloating Objective: Confused. Very poor short-term memory. Yells out in miss directed anger and confusion. Vitals: see above Lungs: Clear. Cardiac: S1S2. Disposition/Potential discharge - Assisted living, memory care Total time is 25 minutes with greater than 50% spent in counseling and coordination of care. Exam Const: Vital Signs, click to edit/add: Vital Signs - 24 hr 11/09/21 19:00 11/09/21 22:43 11/10/21 03:00 Temperature 98.4 F 98 F 98.5 F Pulse Rate [Left R adial] 76 94 66 Respiratory Rate 20 20 20 Blood Pressure [Le ft Arm] 106/79 102/72 111/96 H Pulse Oximetry 94 98 97
--- NOTE | 2021-11-10 16:47 | PC.SOCIAL ---
Discharge planning: Received call back from Sarahi at [facility] stating they can accept pt tomorrow 11/11/21 before 3:00pm. Met with who is aware and agrees with this plan. is requesting ambulance transport to facility. Facility requested discharge at 10:30am. PAS completed and submitted. toll transmission worker to follow up as needed.
[2021-11-10 19:00] VITALS: BP 104/80; PULSE 92; RESP 20; TEMP 36.6; O2SAT 97
[2021-11-10] MEDS: CALCITONIN SALMON NASAL SPRAY 200 UNIT 1 SPRAY NOSTRIL-B (20:04)
[2021-11-10] MEDS: MELATONIN 3 MG TABLET 6 MG PO (20:05)
--- NOTE | 2021-11-10 20:05 | PC.NURSE ---
[id number]: Pt. up to [facility] w/heavy assist x2 today. Seems weaker than yesterday's shift; report from overnight staff that pt. barely slept. MD made aware and orders placed for evening medications. Pt frustrated with not being at home, misses her things. Redirected throughout shift. Nurse to nurse given this morning for care center in [place]. Spouse is aware of plan to transfer care tomorrow. Pt. denied pain other than w/movement. Left foot found to be cooler to touch and with less palpable pedal pulse on AM assessment; different from yesterday. Informed MD, no new orders. Positional changes seemed to help throughout day. Olanzapine x1 given w/relief. Feet felt more even in temp/pedal pulse by end of shift. Pt refused evening meal, but ate stir carcamo x2 for other meals, sharing w/spouse. Pt continues to refuse oxycodone when offered. RN did provide education on potential help of small dose on pain.
[2021-11-10] MEDS: TRAZODONE HCL 50 MG TABLET PO (20:06)
[2021-11-10 23:00] VITALS: BP 111/75; PULSE 70; PULSE 92; RESP 20; TEMP 36.6; O2SAT 97
[2021-11-11] MEDS: OXYCODONE 5 MG TABLET 2.5 MG PO (00:02)
[2021-11-11 03:00] VITALS: BP 111/68; PULSE 72; RESP 20; TEMP 36.8; O2SAT 96
--- NOTE | 2021-11-11 05:44 | PC.NURSE ---
Shift 7p-7a: Pt. alert, following commands with redirection but still attempts to get out of bed without calling for help. Pt. slept uninterrupted through the night save for vital sign checks and occasional repositioning. PRN oxycodone x1 administered for c/o of pain, no further c/o of pain after receiving medication. Pt. voiding and having BM's w/o difficulty. Plan for placement at [facility] today around 1030, [id number] report given by mid shift RN yesterday
[2021-11-11 07:00] VITALS: BP 105/74; PULSE 91; RESP 16; TEMP 36.5; O2SAT 97
[2021-11-11] MEDS: CITALOPRAM HYDROBROMIDE 20 MG TABLET 10 MG PO (08:48)
[2021-11-11] MEDS: ACETAMINOPHEN 500 MG TABLET 1000 MG PO ×2 (08:48→11:32)
[2021-11-11] MEDS: OLANZapine 5 MG TAB.RAPDIS PO (08:49)
[2021-11-11] MEDS: POTASSIUM CHLORIDE 10 MEQ CAPSULE ER 20 MEQ PO (08:49)
[2021-11-11] MEDS: TORSEMIDE 20 MG TABLET PO (08:49)
[2021-11-11] MEDS: SENNOSIDES 1 TAB TABLET 2 TAB PO (08:49)
[2021-11-11] MEDS: METOPROLOL SUCCINATE (XL) 100 MG TAB PO (08:56)
--- NOTE | 2021-11-11 10:10 | PM.DS1 ---
DS: Providers Provider Date Seen: 11/11/21 Date of admission: 11/08/21 23:34 Primary care physician: Jennifer Sanchez, [employer], [employer] Admitting Clinician: Ted Gramajo MD Consults: 11/09/21 00:11 Consult to Occupational Therapy [CONS] Routine Comment: Reason(s) for OT Consult:: Evaluate and Treat Any Restrictions?:: No Restrictions Consult to Physical Therapy [CONS] Routine Comment: Reason(s) for PT Consult:: Evaluate and Treat Any Restrictions?:: No Restrictions Consult to Director Of Academic Support [CONS] Routine Comment: Reason for Consult:: Discharge Planning Needs 11/09/21 01:31 Consult to Occupational Therapy [CONS] Routine Comment: Reason(s) for OT Consult:: Evaluate and Treat Any Restrictions?:: No Restrictions Consult to Physical Therapy [CONS] Routine Comment: Reason(s) for PT Consult:: Evaluate and Treat Any Restrictions?:: No Restrictions Attending Physician on discharge: Jahaira Browning M.D. Date of Discharge: 11/11/21 DS: Diagnosis Discharge Diagnosis (1) Dementia: Status: Acute (2) Closed lumbar vertebral fracture: Status: Acute (3) Right knee pain: Status: Acute (4) Weakness: Status: Acute (5) HFrEF (heart failure with reduced ejection fraction): Status: Acute Problem details: Echocardiogram 03/21/2021 shows severely decreased left ventricular systolic function with an ejection fraction of 25%. Right ventricle size is normal and function is reduced. No significant valvular disease (6) Hypertension: Status: Acute (7) Stage 3 chronic kidney disease: Status: Acute DS: Summary Hospital Course Hospital Course: Patient was admitted for three days - our main purpose was to sort out her meds and control her pain and agitation. Her has a harder and harder time taking care of her and her behaviors were impacting his own health. Ultimately we controlled her pain with scheduled Tylenol and nasal calcitonin and prn oxycodone. We managed her agitation and sleep/awake disturbance with melatonin, celexa, trazodone and olanzapine. She was transferred to SNF on SundayNovember 11. She has long standing Afib on OAC - the anticoagulation was discontinued secondary to her risk for falls. Status at Discharge Cognitive/behavioral status at discharge: much improved. still needs 1-2 assist but can shuffle walk short distances with walker. Functional status at discharge: uses cane/walker Overall status at discharge: patient is progressing back to baseline Time Spent with Patient Time attestation: Total time spent providing and/or coordinating discharge services: Time spent: Greater than 30 minutes Exam Narrative: Exam Narrative: shuffle gait, dementia limits her insight and ability to follow commands. She will just sit even though there is nothing to sit on. She is using a gait belt with at least 1 assist and walker. her right knee has severe valgus deformity. she has loss of strength and coordination. Const: Documenting provider has reviewed patient's vital signs: yes Common normals: no apparent distress General appearance: frail appearing Orientation/consciousness: Yes awake HENMT: Common normals: normocephalic, head/scalp atraumatic, hearing grossly normal bilaterally and moist oral mucous membranes Head and scalp: normal to inspection, normocephalic and atraumatic; no cyanosis of lips/distal nose Face and sinus: normal facial exam; no acrocyanosis present Nose: no nasal discharge Mouth: lip normal and tongue normal Chest: Common normals: inspection of chest normal Chest: symmetrical chest wall rise Resp: Common normals: normal respiratory effort, no retractions, no use of accessory muscles and clear to auscultation bilaterally Effort & inspection: able to speak in complete sentences; no respiratory distress, no pursed lip breathing and not labored Auscultation: clear to auscultation bilaterally Cardio: Common normals: regular rate, regular rhythm, S1 normal heart sound, S2 normal heart sound, no murmurs and peripheral pulses 2+ throughout Rate: regular rate Rhythm: regular rhythm Heart sounds: S1 normal and S2 normal Peripheral pulses: pulses 2+ throughout GI: Common normals: Normal to inspection, nondistended, normoactive bowel sounds present Extremity: Common normals: normal to inspection Neuro: Common normals: CN's II-XII intact bilaterally, moves all extremities and no focal motor deficits Sensorium/orientation: awake Speech: speech normal Motor exam: no tremor noted, no asterixis and no fasciculations Skin: Common normals: no rashes or lesions noted General skin exam: no rashes or lesions noted DS: Data Data Completed and Pending Completed studies during hospitalization: Recent Lumbar MRI (just previous to admission) was reviewed and we chose not to repeat it. Gila would not be a good surgical candidate nor cooperative for repeat studies, injections. this decision was made with during the admission Discharge Plan Discharge Disposition: [facility] Date of Admission: 11/08/21 23:34 Attending Provider on Discharge: Greta Browning Primary Care Provider: Jennifer Sanchez Condition: Unchanged Anticipated Discharge Date/Time: 11/11/21 08:53 Discharge Medications: New acetaminophen 500 mg Tablet 1,000 mg PO TID Qty: 90 0RF calcitonin (salmon) 200 unit/actuation [place],Non-Aerosol 1 spray intranasal HS Qty: 3.7 3RF citalopram 20 mg Tablet 10 mg PO DAILY Qty: 30 0RF melatonin 3 mg Tablet 6 mg PO HS Qty: 60 0RF olanzapine 5 mg Tablet,Disintegrating 5 mg PO BID Qty: 60 0RF oxycodone 5 mg Tablet 2.5 mg PO Q6H PRNQty: 30 0RF Rx Instructions: give 2.5 to 5mg q 6-8 hours prn knee, pelvic, back pain trazodone 50 mg Tablet 50 mg PO HS Qty: 30 0RF Continued potassium chloride [Klor-Con M20] 20 mEq tablet,ER particles/crystals 20 meq PO DAILY metoprolol succinate 100 mg tablet extended release 24 hr 100 mg PO Q12H torsemide 20 mg tablet 20 mg PO DAILY Discontinued Xarelto 20 mg tablet 20 mg PO DAILY Label Comments: with evening meal Rx Instructions: must administer with evening meal Discharge Orders: Discharge Order (Routine); Ordered 11/11/21 Ordered By: Greta Browning Activity Level: Up with assist and Weight Bearing as Tolerated Discharge Diet: Regular Follow Up Appointments: Jennifer Sanchez, DAYNE, [employer] [Primary Care Provider] -
[2021-11-11 11:00] VITALS: BP 124/85; PULSE 131; RESP 20; TEMP 37.3; O2SAT 98
--- NOTE | 2021-11-11 11:08 | PC.SOCIAL ---
Social work: Confirmed with [facility] they are expecting pt today and have all needed information. Met with who plans to follow ambulance in his own car. will be completing admission paperwork at the facility. Provied with Medicare Rights form. He is pleased with discharge plan. PAS completed and submitted. Provided with map and directions to facility.
--- NOTE | 2021-11-11 12:21 | PC.NURSE ---
Discharge: Patient pleasant and cooperative in the morning, nearing discharge patient started to become restless and verbally aggressive. Patient oriented to self, , month, and year. Patient denies pain, scheduled tylenol given. Patient is 1 assist, walker, gb to commode and chair. Patient tolerating regular diet, passing gas, and urinating. Patient's signed belongings sheet and discharge form. Patient left the floor by stretcher at 1218 to alf in [place]. Nurse to Nurse report was given by a previous nurse. Patient's took along patient's belongings. Patient's lunch was also sent with her.
== END 2021-11-11 12:18 | DRG 552 ==
LOC: ED 22:42 → MEDSURG 23:49
PROVIDERS: Admitting Provider Family Medicine; Emergency Provider Family Medicine; PCP Nurse Practitioner Family; Visit Provider Family Medicine
DX: S32.010A Wedge compression fracture of first lumbar vertebra, initial encounter for closed fracture (principal); I13.0 Hypertensive heart and chronic kidney disease with heart failure and stage 1 through stage 4 chronic kidney disease, or unspecified chronic kidney disease; I50.20 Unspecified systolic (congestive) heart failure; G95.29 Other cord compression; S32.020A Wedge compression fracture of second lumbar vertebra, initial encounter for closed fracture; S32.040A Wedge compression fracture of fourth lumbar vertebra, initial encounter for closed fracture; S09.90XA Unspecified injury of head, initial encounter; W05.0XXA Fall from non-moving wheelchair, initial encounter; Y92.003 Bedroom of unspecified non-institutional (private) residence as the place of occurrence of the external cause; I48.91 Unspecified atrial fibrillation; Z79.01 Long term (current) use of anticoagulants; F03.90 Unspecified dementia, unspecified severity, without behavioral disturbance, psychotic disturbance, mood disturbance, and anxiety; N18.30 Chronic kidney disease, stage 3 unspecified; M17.11 Unilateral primary osteoarthritis, right knee; M25.561 Pain in right knee; M81.0 Age-related osteoporosis without current pathological fracture
CPT/HCPCS: 36415; 70450; 72125; 80048; 83735; 85025; 86140; 97110; 97116; 97161; 97165; 97535; 99283; 99284; A9270

== ENCOUNTER 2021-11-11 12:08 | Outpatient (CLI) | payer MEDICARE, SELFPAY | END 2021-11-11 12:09 | disposition home or self-care (01) | LOC: AMB 11-30 12:50 | PROVIDERS: PCP Nurse Practitioner Family; Visit Provider Family Medicine | DX: S32.019S Unspecified fracture of first lumbar vertebra, sequela (principal); S32.029S Unspecified fracture of second lumbar vertebra, sequela; S32.049S Unspecified fracture of fourth lumbar vertebra, sequela; F03.90 Unspecified dementia, unspecified severity, without behavioral disturbance, psychotic disturbance, mood disturbance, and anxiety | CPT/HCPCS: A0425; A0428 ==

== ENCOUNTER 2021-12-07 18:34 | Inpatient (IN) | payer MEDICARE, SELFPAY ==
[2021-12-07 18:38] VITALS: BP 97/73; PULSE 93; RESP 16; TEMP 36.3; O2SAT 100; BMI 23.9
--- NOTE | 2021-12-07 19:00 | CRLHL7_ITS ---
For Patients: As a result of the Century Cures Act, medical imaging exams and procedure reports are released immediately into your electronic medical record. You may view this report before your referring provider. If you have questions, please contact your health care provider. INDICATION: Shortness of breath TECHNIQUE: Chest 1 view COMPARISON: 02/27/2021 FINDINGS: Cardiac silhouette is enlarged with tortuosity of the great vessels, as before. Linear scarring/atelectasis within the left midlung zone laterally. Increased fullness of the pulmonary vascularity compared to the prior study. No pneumothorax. Chronic changes to the left shoulder including chronic malalignment. IMPRESSION: Pulmonary vascular congestion/mild edema. Chronic dislocation of the left shoulder. Dictated by Issac Brooks MD @ 12/07/2021 8:17:34 PM (Electronically Signed)
[2021-12-07 19:46] LABS: Troponin, Point-of-Care* 0.02 ng/ml (0.01-0.04)
[2021-12-07 19:47] LABS: Basophils Absolute Auto 0.06 K/uL (0.00-0.30); Basophils Percent Auto 0.6 % (0.0-3.0); Eosinophils Absolute Auto 0.07 K/uL (0.00-0.50); Eosinophils Percent Auto 0.7 % (0.0-7.0); Hematocrit 34.1 % (33.0-51.0); Hemoglobin* 10.7 gm/dL (12.0-16.0); Immature Granulocytes Abs Auto 0.08 K/uL (0.00-0.30); Lymphocytes Percent Auto 13.4 % (20-44); Mean Corpuscular HGB Conc 31 gm/dL (32-36); Mean Corpuscular Hemoglobin 31 pg (26-34); Mean Corpuscular Volume 100 fL (80-100); Monocytes Percent Auto 8.5 % (0.0-11.0); Platelet Count* 247 K/uL (140-440); RDW Coefficient of Variation % 15.8 % (11.5-15.5); Red Blood Count 3.42 m/uL (4.00-5.20); White Blood Count* 10.32 K/uL (4.50-11.00)
--- NOTE | 2021-12-07 19:56 | ED.SOB ---
HPI - SOB/Dyspnea General Date Seen: 12/07/21 Chief Complaint: Shortness of Breath/Dyspnea Stated Complaint: Short of Breath Time Seen by Provider: 12/07/21 18:43 Source: patient and family History of Present Illness HPI Narrative: Patient is a 76-year-old female who is in assisted living in [place], she has had increasing shortness of breath over the past 2-3 days, brought in by her family member for evaluation. She is placed on oxygen 3 days ago by the senior care, because of increased work of breathing. They thought they heard wheezing also associated with this. When I asked her if she has any heart problems she does deny this, but her significant other tells me she has a history of congestive heart failure and atrial fibrillation. She has no fevers chills, she denies any other COVID symptoms, she has leg swelling but this is been stable. No history of hemoptysis, she was on Eliquis before but this was stopped. They tell me she was recently in this institution, has a history of compression fractures and had to go to the senior care for convalescence, she does not like her physical therapist and refuses to work with them there. Pertinent past history: COPD and congestive heart failure Context: recent illness Exacerbating factors: nothing Relieving factors: nothing Associated symptoms: denies other symptoms Treatment prior to arrival: none Related Data Home oxygen amount: 2 liters Home Medications Medication Instructions Recorded Confirmed metoprolol succinate 100 mg 100 mg PO Q12H 10/27/21 11/08/21 tablet,extended release 24 hr potassium chloride 20 mEq 20 meq PO DAILY 10/27/21 11/08/21 tablet,extended release(part/cryst) (Klor-Con M) torsemide 20 mg tablet 20 mg PO DAILY 10/27/21 11/08/21 Previous Rx's Medication Instructions Recorded acetaminophen 500 mg tablet 1,000 mg PO TID #90 tabs 11/11/21 calcitonin (salmon) 200 1 spray intranasal HS #3.7 mL 11/11/21 unit/actuation nasal spray citalopram 20 mg tablet 10 mg PO DAILY #30 tabs 11/11/21 melatonin 3 mg tablet 6 mg PO HS #60 tabs 11/11/21 olanzapine 5 mg disintegrating 5 mg PO BID #60 tabs 11/11/21 tablet oxycodone 5 mg tablet 2.5 mg PO Q6H PRN #30 tabs 11/11/21 trazodone 50 mg tablet 50 mg PO HS #30 tabs 11/11/21 Allergies Allergy/AdvReac Type Severity Reaction Status Date / Time No Known Drug Allergies Allergy Verified 10/27/21 13:33 Review of Systems Status of ROS: Reports: 10 or more systems reviewed and unremarkable except as noted in History and below PFSH PFS Medical History Atrial fibrillation with rapid ventricular response Dementia HFrEF (heart failure with reduced ejection fraction) Hypertension Right knee pain Stage 3 chronic kidney disease Surgical History History of left cataract surgery Social History Narrative: She lives with her . He is her primary caregiver. He reports he has been very difficult due to her immobility. Highest level of school completed/degree received: high school graduate Smoking Status: Never smoker Second hand tobacco smoke exposure: No How often do you have a drink containing alcohol: never How often do you have six or more drinks on one occasion: Never AUDIT-C Alcohol total score: 0 Non-prescribed substance use: denies use service: No Exam Const: Vital Signs, click to edit/add: Vital Signs - 24 hr 12/07/21 18:38 12/07/21 21:05 Temperature 97.3 F L Pulse Rate [Pulse Oximeter] 93 Respiratory Rate 16 Blood Pressure [Le ft Upper Arm] 97/73 104/55 L Pulse Oximetry 100 Oxygen Delivery Me thod Nasal Cannula Oxygen Flow Rate 3 Documenting provider has reviewed patient's vital signs: yes Common normals: no apparent distress Exam limitations: altered mental status General appearance: comfortable, anxious, frail appearing and appears older than stated age Nutritional appearance: obese Orientation/consciousness: Yes oriented to person, Yes oriented to place and Yes oriented to time HENMT: Common normals: normocephalic, head/scalp atraumatic, hearing grossly normal bilaterally, external ears normal, EAC's normal, TM's normal bilaterally, external nose normal, nasal mucous membranes and turbinates normal, moist oral mucous membranes, oropharynx normal, dentition normal and gingiva normal Head and scalp: normocephalic and atraumatic Nose: external nose normal and nasal mucous membranes and turbinates normal External ear: external ears normal External auditory canal: EAC's normal Tympanic membrane: TM's normal bilaterally Eye: Common normals: PERRL, EOMs intact bilaterally, conjunctivae normal, no scleral icterus, no papilledema, normal visual davis by confrontation and fundi normal bilaterally General eye: normal appearance of both eyes and normal light reflex Conjunctiva: conjunctiva(e) normal Pupil: PERRL Direct Ophthalmoscopy: normal light reflex, no papilledema and fundi normal bilaterally Neck & C-Spine: Common normals: full ROM, no lymphadenopathy, supple, no meningeal signs, no JVD, thyroid normal and no carotid bruits General: normal visual inspection, trachea midline, anterior neck swelling and lymphadenopathy Thyroid: thyroid normal Carotids: normal carotid upstroke Cervical spine: cervical ROM normal, normal cervical lordosis, cervical ROM abnormal, pain with cervical ROM and loss of normal cervical lordosis Lymph: Lymphatic: no lymphadenopathy noted and no lymphedema noted Chest: Common normals: inspection of chest normal Chest: abnormal inspection of the chest Resp: Common normals: percussion normal Effort & inspection: able to speak in complete sentences, tachypneic, pursed lip breathing, uses accessory muscles, paradoxical thoraco-abdominal movements, audible wheezes and prolonged expiratory phase Auscultation: wheezes and diminished lung sounds Percussion: percussion normal Cardio: Common normals: no JVD, regular rate, regular rhythm, S1 normal heart sound, S2 normal heart sound, no gallops, no clicks, no murmurs, no rub and peripheral pulses 2+ throughout Rate: regular rate Rhythm: regular rhythm Heart sounds: S1 normal and S2 normal Peripheral pulses: pulses 2+ throughout GI: Common normals: Normal to inspection, nondistended, normoactive bowel sounds present, soft to palpation, non-tender, no hepatosplenomegaly, no masses and no bruits Inspection: normal to inspection Palpation: soft and no hepatosplenomegaly Percussion: normal to percussion : Common normals: no CVA tenderness Bladder/kidney exam: no CVA tenderness Back & Pelvis: Common normals: no CVA tenderness, thoracic and lumbar spine normal to inspection, no thoracic nor lumbar tenderness, thoraco-lumbar ROM normal and straight leg raise negative bilaterally Extremity: Common normals: normal to inspection, full ROM, normal capillary refill, no joint enlargement, no clubbing, cyanosis or edema, no calf tenderness and no pedal edema General: normal exam except as noted Neuro: Sensorium/orientation: oriented to person, oriented to place and oriented to time Meningeal signs: no meningeal signs Course Course Hospital Course: Patient is seen and assessed, I do believe she is in congestive heart failure with some fluid overload, EKG shows atrial fibrillation controlled response, I do not know why she has come off her Xarelto, we will go ahead and do us chest CT to rule out a pulmonary embolism, her oxygenation is good, but she would benefit from diuresis. Chest CT is reviewed with the patient, and family, aneurysm of the thoracic aorta has increased in size from 4.3-5.2, no evidence of pulmonary embolism, patient would benefit from admission overnight and diuresis, I will give her dose of Lasix here. I spoke to the hospitalist, he accepted her for admission, Vital Signs Vital signs: Initial Vital Signs Temperature 97.3 F L 12/07/21 18:38 Temperature Source Temporal Artery Scan 12/07/21 18:38 Pulse Rate 93 12/07/21 18:38 Pulse Rhythm 12/07/21 18:38 Respiratory Rate 16 12/07/21 18:38 Blood Pressure 97/73 12/07/21 18:38 Blood Pressure Mean 81 12/07/21 18:38 Blood Pressure Position Supine 12/07/21 18:38 Pulse Oximetry 100 12/07/21 18:38 Oxygen Delivery Method 12/07/21 18:38 Oxygen Flow Rate 3 12/07/21 18:38 Vital Signs Temperature 97.3 F L 12/07/21 18:38 Pulse Rate 93 12/07/21 18:38 Respiratory Rate 16 12/07/21 18:38 Blood Pressure 97/73 12/07/21 18:38 Pulse Oximetry 100 12/07/21 18:38 Oxygen Delivery Method 12/07/21 18:38 Oxygen Flow Rate 3 12/07/21 18:38 Temperature 97.3 F L 12/07/21 18:38 Pulse Rate 93 12/07/21 18:38 Respiratory Rate 16 12/07/21 18:38 Blood Pressure 104/55 L 12/07/21 21:05 Pulse Oximetry 100 12/07/21 18:38 Oxygen Delivery Method 12/07/21 18:38 Oxygen Flow Rate 3 12/07/21 18:38 MDM - SOB/Dyspnea MDM Narrative Medical decision making narrative: Life-threatening differential diagnosis includes occluded COPD exacerbation, pulmonary edema, acute coronary syndromes, pulmonary embolism, pneumonia, and pneumothorax. Other differential diagnosis considerations include asthma, bronchitis as well as other etiologies Differential Diagnosis Differential diagnosis: Likely acute exacerbation of chronic obstructive airways disease, congestive heart failure, community acquired pneumonia, asthma with exacerbation and pulmonary embolism Medical Records Attestation: I reviewed the patient's medical records. Lab Data Attestation: I reviewed the patient's lab results. Labs: Lab Results 12/07/21 12/07/21 12/07/21 Range/Units 19:30 19:30 19:30 WBC 10.32 (4.50-11.00) K/uL RBC 3.42 L (4.00-5.20) m/uL Hgb 10.7 L (12.0-16.0) gm/dL Hct 34.1 (33.0-51.0) % MCV 100 (80-100) fL MCH 31 (26-34) pg MCHC 31 L (32-36) gm/dL RDW Coeff of Andres 15.8 H (11.5-15.5) % Plt Count 247 (140-440) K/uL Neut % (Auto) 76.0 H (42.0-72.0) % Lymph % (Auto) 13.4 L (20-44) % [place] % (Auto) 8.5 (0.0-11.0) % Eos % (Auto) 0.7 (0.0-7.0) % Baso % (Auto) 0.6 (0.0-3.0) % Neut # (Auto) 7.80 H (1.7-7.0) K/uL Lymph # (Auto) 1.40 (0.90-2.90) K/uL [place] # (Auto) 0.90 (0.00-0.90) K/UL Eos # (Auto) 0.07 (0.00-0.50) K/uL Baso # (Auto) 0.06 (0.00-0.30) K/uL Abs Immat Gran (auto) 0.08 (0.00-0.30) K/uL INR 1.10 (0.91-1.10) APTT 34 H (23-33) Seconds D-Dimer Quant (PE/DVT) 10.17 H (0.00-0.50) ug/ml Sodium 137 (135-149) mmol/L Potassium 5.2 H (3.6-5.1) mmol/L Chloride 99 (96-114) mmol/L Carbon Dioxide 29 (20-32) mmol/L BUN 25 (7-30) mg/dL Creatinine 1.3 (0.5-1.5) mg/dL Estimated Creat Clear 29.98 Estimated GFR 42 ml/min Glucose 111 (60-115) mg/dL Calcium 8.6 (8.4-10.6) mg/dL NT-Pro-B Natriuret Pep 43982 H (0-450) PG/mL SARS-CoV-2 (PCR) (Negative) Influenza Type A (PCR) (Negative) Influenza Type B (PCR) (Negative) RSV (PCR) (Negative) POC Troponin I (0.01-0.04) ng/ml 12/07/21 12/07/21 Range/Units 19:30 19:30 WBC (4.50-11.00) K/uL RBC (4.00-5.20) m/uL Hgb (12.0-16.0) gm/dL Hct (33.0-51.0) % MCV (80-100) fL MCH (26-34) pg MCHC (32-36) gm/dL RDW Coeff of Andres (11.5-15.5) % Plt Count (140-440) K/uL Neut % (Auto) (42.0-72.0) % Lymph % (Auto) (20-44) % [place] % (Auto) (0.0-11.0) % Eos % (Auto) (0.0-7.0) % Baso % (Auto) (0.0-3.0) % Neut # (Auto) (1.7-7.0) K/uL Lymph # (Auto) (0.90-2.90) K/uL [place] # (Auto) (0.00-0.90) K/UL Eos # (Auto) (0.00-0.50) K/uL Baso # (Auto) (0.00-0.30) K/uL Abs Immat Gran (auto) (0.00-0.30) K/uL INR (0.91-1.10) APTT (23-33) Seconds D-Dimer Quant (PE/DVT) (0.00-0.50) ug/ml Sodium (135-149) mmol/L Potassium (3.6-5.1) mmol/L Chloride (96-114) mmol/L Carbon Dioxide (20-32) mmol/L BUN (7-30) mg/dL Creatinine (0.5-1.5) mg/dL Estimated Creat Clear Estimated GFR ml/min Glucose (60-115) mg/dL Calcium (8.4-10.6) mg/dL NT-Pro-B Natriuret Pep (0-450) PG/mL SARS-CoV-2 (PCR) Negative SARS-CoV-2 (Negative) Influenza Type A (PCR) Negative PCR FLU A (Negative) Influenza Type B (PCR) Negative PCR FLU B (Negative) RSV (PCR) Negative PCR RSV (Negative) POC Troponin I 0.02 (0.01-0.04) ng/ml ECG Data Attestation: I personally reviewed and interpreted this ECG as follows: Prior ECG tracings: available for review Interpretation: Atrial fibrillation with controlled response at 1:06 a.m., no acute ST wave changes but nonspecific ST wave changes are noted. In comparison to previous EKGs really not a lot of change. Discharge Plan Discharge Clinical Impression: Congestive heart failure, Atrial fibrillation, D-dimer, elevated, Acute hyperkalemia Patient Disposition: Admitted As Inpatient Condition: Stable
[2021-12-07 19:58] LABS: Slide Review Reflex No
[2021-12-07 19:59] LABS: Chloride* 99 mmol/L (96-114)
[2021-12-07 20:00] LABS: Potassium* 5.2 mmol/L (3.6-5.1); Sodium* 137 mmol/L (135-149)
[2021-12-07 20:01] LABS: Prothrombin Time 14.6 Seconds
[2021-12-07 20:02] LABS: Creatinine* 1.3 mg/dL (0.5-1.5); Est. Creatinine Clearance* 29.98; Estimated Glomerular Filt Rate 42 ml/min; Partial Thromboplastin Time* 34 Seconds (23-33)
[2021-12-07 20:03] LABS: Blood Urea Nitrogen* 25 mg/dL (7-30); Carbon Dioxide* 29 mmol/L (20-32); Glucose* 111 mg/dL (60-115)
[2021-12-07 20:11] LABS: D Dimer Quantitative* 10.17 ug/ml (0.00-0.50)
[2021-12-07 20:12] LABS: Calcium* 8.6 mg/dL (8.4-10.6); NT Pro B Type NatriureticPept* 22800 PG/mL (0-450)
[2021-12-07 20:20] LABS: PCR FLU A Negative PCR FLU A (Negative); PCR FLU B Negative PCR FLU B (Negative); PCR RSV Negative PCR RSV (Negative)
[2021-12-07 20:29] LABS: SARS PCR* Negative SARS-CoV-2 (Negative)
--- NOTE | 2021-12-07 20:42 | CRLHL7_ITS ---
For Patients: As a result of the Century Cures Act, medical imaging exams and procedure reports are released immediately into your electronic medical record. You may view this report before your referring provider. If you have questions, please contact your health care provider. INDICATION: Shortness of breath, elevated D-dimer TECHNIQUE: CT chest pulmonary PE protocol acquired with 95 cc Isovue 370 IV contrast. COMPARISON: Chest CT November 24, 2020 FINDINGS: Cardiovascular structures: Normal vascular enhancement of the pulmonary arteries, no sign of pulmonary embolism. Cardiomegaly. The ascending aorta measures 5.2 cm in diameter, previously 4.3 cm. The main pulmonary artery measures 5.0 cm in diameter. Mediastinum and crys: Substernal thyroid gland. Lungs: Minimal atelectasis at both lung bases. Pleura and pericardium: No effusions. Chest wall and axilla: No mass or adenopathy. Upper abdomen: Unremarkable. Bones: Severe degenerative changes in the left glenohumeral joint. Old T5, T6, T8, T9, T11, and L1 and L2 fractures. IMPRESSION: No pulmonary embolism or pneumonia. Marked dilatation of the main pulmonary artery. This can be seen with pulmonary arterial hypertension. Aneurysm of the ascending aorta measuring 5.2 cm in diameter, previously 4.3 cm. Please note that all CT scans at this facility use dose modulation, iterative reconstruction, and/or weight-based dosing when appropriate to reduce radiation dose to as low as reasonably achievable. Dictated by Katheryn Arguello MD @ 12/07/2021 10:24:14 PM (Electronically Signed)
[2021-12-07 21:05] VITALS: BP 104/55
[2021-12-07] MEDS: 0.9 % SODIUM CHLORIDE 500 ML 500 ML IV (21:19)
--- NOTE | 2021-12-07 21:51 | ED.NURSE ---
Pt alarming Afib with RVR. notified. Repeat EKG completed. Pt asymptomatic with hx of proximal afib
[2021-12-07 22:00] VITALS: BP 128/89; PULSE 147; RESP 22; O2SAT 91
[2021-12-07 22:20] VITALS: BP 114/83; PULSE 124; RESP 22; O2SAT 92
[2021-12-07 23:00] VITALS: BP 109/83; PULSE 87; RESP 22; O2SAT 94
[2021-12-07] MEDS: FUROSEMIDE 10 MG/ML inj 40 MG IVP (23:05)
[2021-12-07 23:20] VITALS: BP 111/62; PULSE 137; RESP 22; O2SAT 94
[2021-12-08] VITALS (17 sets, daily range): BP systolic 73–121; BP diastolic 52–106; PULSE 68–124; RESP 18–24; TEMP 36.1–37.1; O2SAT 91–97; BMI 28.0
--- NOTE | 2021-12-08 00:13 | W.PC.EDHO ---
Primary Language: Preferred Language: Orientation Status: [x] Alert & Oriented [] Slight Confusion [] Known Dx Dementia Transfers By: [] Assist of 1 [] Assist of 2 [x] Lift Active Medications Discontinued Medications Generic Name Dose Route Start Last Admin Trade Name Kimberly PRN Reason Stop Dose Admin Furosemide 40 mg 12/07/21 22:49 12/07/21 23:05 Furosemide 10 Mg/Ml Inj IVP 12/07/21 22:50 40 mg ONCE ONE Administration Sodium Chloride 500 mls @ 500 mls/hr 12/07/21 20:42 12/07/21 21:19 0.9 % Sodium Chloride 500 Ml IV 12/07/21 21:41 500 mls/hr .Q1H ONE Administration Description of Symptoms ED Triage Present Problem //Patient is staying aT [place]. She was Description noticed to have significant weight gain of 50 lbs since she has been there. She is also having SOB with RR of 26 and looks of respiratory distress. Patient has a history of heart failure. ED Triage Date of Onset of 12/07/21 Symptoms Female History Patient No IV Insertion/Site Date of IV Line Insertion [ 12/07/21 Right Antecubital] Oxygen Administration Pulse Oximetry 100 Oxygen Delivery Method Nasal Cannula Oxygen Flow Rate 3 Cardiac Monitoring EKG Method 12 Lead
--- NOTE | 2021-12-08 02:47 | P.IMCN_ITS ---
Date of Consult Consult date: 12/08/21 Primary Care Provider: Jennifer Sanchez, CORE WINDER MACHINE OPERATOR, NATIONAL OPELINT ANALYST Consult Narrative Narrative: [facility] Hospitalist ADMISSION SUPPORT NOTE eHospitalist was contacted by Dr. Coronado with request of admission support. Chief complaint: SOB HPI: The patient reports that over the past 2 days she has noticed shortness of breath with exertion. She also complains of increasing lower extremity edema since yesterday. She had elevated BNP on admission and given her presentation was thought to have CHF exacerbation so was treated with IV Lasix. Review of systems other than mentioned above is negative Home Medications/Pertinent Medical History/Pertinent Social History: Reviewed see EMR for details Review of Systems Status of ROS: Reports: 10 or more systems reviewed and unremarkable except as noted in History and below PFSH PFSH Medical History Atrial fibrillation with rapid ventricular response Dementia HFrEF (heart failure with reduced ejection fraction) Hypertension Right knee pain Stage 3 chronic kidney disease Surgical History History of left cataract surgery Social History Narrative: She lives with her . He is her primary caregiver. He reports he has been very difficult due to her immobility. Highest level of school completed/degree received: high school graduate Smoking Status: Never smoker Second hand tobacco smoke exposure: No How often do you have a drink containing alcohol: never How often do you have six or more drinks on one occasion: Never AUDIT-C Alcohol total score: 0 Non-prescribed substance use: denies use service: No Meds Home Medications and Allergies Home Medications Medication Instructions Recorded Confirmed Type metoprolol succinate 100 mg 100 mg PO Q12H 10/27/21 11/08/21 History tablet,extended release 24 hr potassium chloride 20 mEq 20 meq PO DAILY 10/27/21 11/08/21 History tablet,extended release(part/cryst) (Klor-Con M) torsemide 20 mg tablet 20 mg PO DAILY 10/27/21 11/08/21 History Allergies Allergy/AdvReac Type Severity Reaction Status Date / Time No Known Drug Allergies Allergy Verified 10/27/21 13:33 Exam Narrative: Exam Narrative: Exam (performed via interactive video with assistance of bedside nurse): General: Alert, cooperative, no acute distress HEENT: Oral mucosa pink and moist without erythema, dentures Lungs: Mild increase in respiratory effort, clear except left lung base crackles CV: Regular rate and irregular rhythm without loud murmur rub or gallop Ext: 2+ to 3+ pedal edema to bilateral knees Skin: Lower extremity venouse statis changes Neuro: Alert, oriented x 3 however she thought she was in a clinic and that the year was 2022 however she remembered the name of the president. CN III -VII, XI, XII grossly intact, upper extremity strength 5/5, lower extremity strength 2/5 left, 3/5 right Const: Vital Signs, click to edit/add: Vital Signs - 24 hr 12/07/21 18:38 12/07/21 21:05 12/08/21 01:43 Temperature 97.3 F L Pulse Rate [Pulse Oximeter] 93 Respiratory Rate 16 20 Blood Pressure [Le ft Upper Arm] 97/73 104/55 L Blood Pressure [Ri ght Arm] Pulse Oximetry 100 95 Oxygen Delivery Me thod Nasal Cannula Nasal Cannula Oxygen Flow Rate 3 2.0 12/08/21 01:43 12/08/21 02:12 Temperature 98.3 F 98.3 F Pulse Rate [Pulse Oximeter] 93 93 Respiratory Rate 20 20 Blood Pressure [Le ft Upper Arm] Blood Pressure [Ri ght Arm] 108/72 108/72 Pulse Oximetry 95 95 Oxygen Delivery Me thod Nasal Cannula Nasal Cannula Oxygen Flow Rate 2.0 2.0 Labs Labs: Short CBC 12/07/21 Range/Units 19:30 WBC 10.32 (4.50-11.00) K/uL Hgb 10.7 L (12.0-16.0) gm/dL Hct 34.1 (33.0-51.0) % Plt Count 247 (140-440) K/uL BMP 12/07/21 19:30 Sodium 137 Potassium 5.2 H Chloride 99 Carbon Dioxide 29 BUN 25 Creatinine 1.3 Glucose 111 Calcium 8.6 Assessment and Plan Assessment and plan (1) Congestive heart failure: Status: Acute Plan Recent lab/CTA chest: Reviewed see EMR for details EKG: Per my interpretation shows atrial fibrillation at 128 bpm, low voltage Assessment and Plan: 1. Shortness of breath-secondary to CHF exacerbation. Started on IV Lasix. Continue 40 mg IV daily. 2. Atrial fibrillation-tachycardic in the ED. Continue metoprolol once medication reconciled 3. Depression-stable on olanzapine, citalopram. Resume once medications reconciled 3. DVT prophylaxis-on Xarelto per documentation 4. CODE STATUS full code per report Chart review was performed as well as evaluation of the patient via video. Thank you for involving ehospitalist. Please contact [phone] if further assistance is needed.
--- NOTE | 2021-12-08 05:53 | PC.NURSE ---
Patient admitted to unit at 0040. Orientated to person with frequent confusion. Denies pain. SOB at rest. On 2Lt O2 to maintain sats>90. Uses bedpan for urination. Tolerates well. Talks to self.
[2021-12-08 06:26] LABS: Basophils Absolute Auto 0.07 K/uL (0.00-0.30); Basophils Percent Auto 0.8 % (0.0-3.0); Eosinophils Absolute Auto 0.24 K/uL (0.00-0.50); Eosinophils Percent Auto 2.7 % (0.0-7.0); Immature Granulocytes Abs Auto 0.03 K/uL (0.00-0.30); Lymphocytes Percent Auto 17.8 % (20-44); Mean Corpuscular HGB Conc 31 gm/dL (32-36); Mean Corpuscular Hemoglobin 31 pg (26-34); Mean Corpuscular Volume 100 fL (80-100); Monocytes Percent Auto 10.6 % (0.0-11.0); Neutrophils Absolute Auto 6.08 K/uL (1.7-7.0); Neutrophils Percent Auto 67.8 % (42.0-72.0); Platelet Count* 245 K/uL (140-440); Red Blood Count 3.19 m/uL (4.00-5.20); White Blood Count* 8.97 K/uL (4.50-11.00)
[2021-12-08 06:57] LABS: Troponin I* 0.02 ng/mL (0.01-0.04)
[2021-12-08 07:06] LABS: Slide Review Reflex No
[2021-12-08 07:25] LABS: Chloride* 100 mmol/L (96-114); Potassium* 4.2 mmol/L (3.6-5.1); Sodium* 139 mmol/L (135-149)
[2021-12-08 07:27] LABS: Creatinine* 1.2 mg/dL (0.5-1.5); Est. Creatinine Clearance* 32.48; Estimated Glomerular Filt Rate 47 ml/min
[2021-12-08 07:28] LABS: Blood Urea Nitrogen* 26 mg/dL (7-30); Calcium* 8.3 mg/dL (8.4-10.6); Carbon Dioxide* 31 mmol/L (20-32); Glucose* 98 mg/dL (60-115)
--- NOTE | 2021-12-08 09:01 | PC.SOCIAL ---
Confirmed pt. is from [facility] and updated Sarahi in admissions at [facility] that pt. should be ready to discharge on Sunday. Sarahi asked that we continue to update her on her discharge.
[2021-12-08] MEDS: CITALOPRAM HYDROBROMIDE 20 MG TABLET 10 MG PO (09:14)
[2021-12-08] MEDS: OLANZapine 5 MG TAB.RAPDIS PO ×2 (09:15→20:48)
[2021-12-08] MEDS: ACETAMINOPHEN 500 MG TABLET 1000 MG PO ×3 (09:15→20:48)
[2021-12-08] MEDS: TORSEMIDE 20 MG TABLET 40 MG PO (09:16)
[2021-12-08] MEDS: METOPROLOL SUCCINATE (XL) 100 MG TAB PO ×2 (09:16→20:48)
[2021-12-08] MEDS: POTASSIUM CHLORIDE 10 MEQ CAPSULE ER PO (09:20)
--- NOTE | 2021-12-08 10:17 | PC.NURSE ---
Called the [facility] ([phone]) to inquire about the patients mobility status. Unable to reach a nurse at this time. Will try back in a little bit.
--- NOTE | 2021-12-08 10:29 | P.IMHP_ITS ---
Hospitalist- H&P: TRAN History of Present Illness Date Seen: 12/08/21 Chief complaint: Short of Breath Narrative: Gila Carson is a 76 year old female admitted with 3 day history of progressive dyspnea. She is a resident of a retirement in [place] where she was noted to be hypoxic and short of breath. Three days prior to admission she was started on supplemental oxygen for this. Longstanding history of heart failure with reduced ejection fraction. She also has atrial fibrillation with RVR. She was hospitalized here 1 month ago with lumbar compression fractures and head injury. At that time she was sent to the retirement for rehabilitation and chronic disease management. Patient has dimension is unable to give significant history about recent events. Review of Systems Narrative: Patient denies having any symptoms of illness. She specifically denies shortness of breath, chest pain, cough, abdominal pain, nausea, diarrhea. She denies any pain problems. She reports she is feeling well. History is unreliable due to dementia. [facility] Medical History (Updated 12/08/21 @ 10:41 by Ted Gramajo MD) Atrial fibrillation with rapid ventricular response Dementia HFrEF (heart failure with reduced ejection fraction) Hypertension Lumbar compression fracture Right knee pain Stage 3 chronic kidney disease Surgical History History of left cataract surgery Social History (Updated 12/08/21 @ 10:36 by Ted Gramajo MD) Narrative: Until a month ago she was living with her in [place]. At that time she had a fall, was hospitalized here and moved to retirement for rehabilitation. Highest level of school completed/degree received: high school graduate Smoking Status: Never smoker Second hand tobacco smoke exposure: No How often do you have a drink containing alcohol: never How often do you have six or more drinks on one occasion: Never AUDIT-C Alcohol total score: 0 Non-prescribed substance use: denies use service: No Meds Home Medications and Allergies Home Medications Medication Instructions Recorded Confirmed Type metoprolol succinate 100 mg 100 mg PO BID 10/27/21 12/08/21 History tablet,extended release 24 hr potassium chloride 20 mEq 20 meq PO DAILY 10/27/21 12/08/21 History tablet,extended release(part/cryst) (Klor-Con M) torsemide 20 mg tablet 20 mg PO DAILY 10/27/21 12/08/21 History albuterol sulfate 2.5 mg/3 mL 2.5 mg inhalation Q4H PRN 12/08/21 12/08/21 History (0.083 %) solution for nebulization calcium carbonate 600 mg-vitamin 1 cap PO DAILY 12/08/21 12/08/21 History D3 5 mcg (200 unit) capsule (Calcium 600 + D(3)) guaifenesin 100 mg/5 mL oral 400 mg PO DAILY 12/08/21 12/08/21 History liquid (Adult Tussin Chest Congestion) olanzapine 5 mg disintegrating 5 - 10 mg PO BID 12/08/21 12/08/21 History tablet Allergies Allergy/AdvReac Type Severity Reaction Status Date / Time No Known Drug Allergies Allergy Verified 10/27/21 13:33 Exam Narrative: Exam Narrative: She is alert and appears in mild respiratory distress with increased rate and work of breathing. There is some audible wheezing present. Eyes are notable for a prominent right cataract. Extraocular movements are full. No scleral icterus. Oropharynx with dry mucous membranes. Neck is supple without mass or adenopathy. No jugular venous distention. Respirations with diffuse expiratory wheezing and crackles. this appears to be both some upper airway congestion as well as probable heart failure. Somewhat diminished breath sounds at lung bases. Cardiovascular: S1, S2, irregularly irregular. No murmur gallop or rub. Abdomen: Bowel sounds are active. Prominent umbilical hernia which is reducible and nontender. No other abdominal tenderness or mass. Extremities with 1 to 2+ edema in both feet. Feet are warm to touch. Diminished pedal pulses. Const: Vital Signs, click to edit/add: Vital Signs - 24 hr 12/07/21 18:38 12/07/21 21:05 12/08/21 01:43 Temperature 97.3 F L Pulse Rate Pulse Rate [Pulse Oximeter] 93 Respiratory Rate 16 20 Blood Pressure [Le ft Upper Arm] 97/73 104/55 L Blood Pressure [Ri ght Arm] Pulse Oximetry 100 95 Oxygen Delivery Me thod Nasal Cannula Nasal Cannula Oxygen Flow Rate 3 2.0 12/08/21 01:43 12/08/21 02:12 12/08/21 03:00 Temperature 98.3 F 98.3 F 98.1 F Pulse Rate Pulse Rate [Pulse Oximeter] 93 93 68 Respiratory Rate 20 20 22 Blood Pressure [Le ft Upper Arm] Blood Pressure [Ri ght Arm] 108/72 108/72 112/97 H Pulse Oximetry 95 95 96 Oxygen Delivery Me thod Nasal Cannula Nasal Cannula Nasal Cannula Oxygen Flow Rate 2.0 2.0 2.0 12/08/21 01:43 12/08/21 02:00 12/07/21 22:00 Temperature Pulse Rate 122 H Pulse Rate [Pulse Oximeter] 147 H Respiratory Rate 22 22 Blood Pressure [Le ft Upper Arm] 128/89 Blood Pressure [Ri ght Arm] Pulse Oximetry 92 91 Oxygen Delivery Me thod Nasal Cannula Room Air Oxygen Flow Rate 2.0 12/07/21 22:20 12/07/21 23:00 12/07/21 23:20 Temperature Pulse Rate Pulse Rate [Pulse Oximeter] 124 H 87 137 H Respiratory Rate 22 22 22 Blood Pressure [Le ft Upper Arm] 114/83 109/83 111/62 Blood Pressure [Ri ght Arm] Pulse Oximetry 92 94 94 Oxygen Delivery Me thod Room Air Room Air Room Air Oxygen Flow Rate 12/08/21 00:00 12/08/21 00:20 12/08/21 09:10 Temperature 96.9 F L Pulse Rate Pulse Rate [Pulse Oximeter] 123 H 108 H 91 Respiratory Rate 22 22 18 Blood Pressure [Le ft Upper Arm] 114/77 114/74 Blood Pressure [Ri ght Arm] 115/65 Pulse Oximetry 96 92 97 Oxygen Delivery Me thod Room Air Room Air Nasal Cannula Oxygen Flow Rate 2 12/08/21 09:30 Temperature Pulse Rate Pulse Rate [Pulse Oximeter] Respiratory Rate 20 Blood Pressure [Le ft Upper Arm] Blood Pressure [Ri ght Arm] Pulse Oximetry 97 Oxygen Delivery Me thod Nasal Cannula Oxygen Flow Rate 1 Documenting provider has reviewed patient's vital signs: yes Hospitalist - H&P: Result Labs Labs: Short CBC 12/07/21 12/08/21 Range/Units 19:30 05:40 WBC 10.32 8.97 (4.50-11.00) K/uL Hgb 10.7 L 10.0 L (12.0-16.0) gm/dL Hct 34.1 32.0 L (33.0-51.0) % Plt Count 247 245 (140-440) K/uL BMP 12/07/21 12/08/21 19:30 05:40 Sodium 137 139 Potassium 5.2 H 4.2 Chloride 99 100 Carbon Dioxide 29 31 BUN 25 26 Creatinine 1.3 1.2 Glucose 111 98 Calcium 8.6 8.3 L Cardiac Enzymes 12/08/21 Range/Units 05:40 Troponin I 0.02 (0.01-0.04) ng/mL Assessment and Plan Assessment and plan (1) HFrEF (heart failure with reduced ejection fraction): Problem comment: Echocardiogram 03/21/2021 shows severely decreased left ventricular systolic function with an ejection fraction of 25%. Right ventricle size is normal and function is reduced. No significant valvular disease Status: Acute Assessment and Plan: Continue IV furosemide. Increase dose of torsemide. Close monitoring of vital signs, respiratory status and renal function and electrolytes (2) Atrial fibrillation with rapid ventricular response: Problem comment: On metoprolol for rate control and previously on apixaban for stroke prophylaxis. This was discontinued due to his fall risk. Status: Acute Assessment and Plan: Heart rate poorly controlled. Possibly due to missing metoprolol dose last night. Resume normal metoprolol and monitor. She remains at high risk for bleeding and clotting. New anemia raises concerns about occult source of bleeding so apixaban remains relatively contraindicated (3) Dementia: Status: Acute Assessment and Plan: Stable, chronic, significant barrier to optimizing medical therapy (4) Stage 3 chronic kidney disease: Status: Acute Assessment and Plan: Stable, chronic, close monitoring with vigorous diuresis (5) Hyperkalemia: Status: Acute Assessment and Plan: Monitor and adjust potassium does with increasing diuretic (6) Macrocytic anemia: Status: Acute Assessment and Plan: New macrocytic anemia since 1 month ago. No obvious source of bleeding. Initiate blood tests and monitoring for occult bleeding. Plan She will be admitted for management of heart failure, initial evaluation of anemia and management of electrolytes, hyperkalemia, renal function. Total time spent today is 75 minutes, 55 minutes in coordination of care and discussing with other providers ongoing management of heart failure and anemia and electrolytes
--- NOTE | 2021-12-08 10:50 | PC.NURSE ---
Notified MD that BP is low. MD asked that patient go back to bed, will move IV lasix to later on today, and to administer an albuterol neb. These interventions were completed. Will continue to assess patient.
[2021-12-08] MEDS: ALBUTEROL SULFATE 2.5 MG/3 ML VIAL.NEB NEB (11:07)
--- NOTE | 2021-12-08 15:26 | PC.NURSE ---
End of shift note: Patient has been calm and cooperative today. PT/OT evaluated and worked with patient. Patient was up in chair via EZ stand this morning but BP went low. MD was notified and patient was returned to bed. BP has since recovered. Patient has been on and off RA-1L-2L NC of oxygen. Currently on RA and sating 95%. Patient did have increased work of breathing earlier today and an albuterol neb was administered and this was helpful. MD changed IV lasix to this afternoon to allow her BP to recover. Knee high TEDs were applied to Bilateral lower extremities. PIV in left hand and right AC are patent and intact. Patient is tolerating a regular diet and feeds self. Takes pills whole with water. Patient is alert to self but not oriented to place or time. Bed alarm and chair alarm are in place. has been at bedside most of the day. Patient is from [facility] and plans to return there at discharge. volunteer services specialist following for this. Skin is intact. Patient is voiding in the bedpan/commode and also incontinent at times. LBM 12/06/21. Order for GUIACs as hemoglobin has dropped in the last month. Lung sounds are diminished.
[2021-12-08] MEDS: FUROSEMIDE 10 MG/ML inj IVP (16:04)
[2021-12-08] MEDS: POTASSIUM CHLORIDE 10 MEQ CAPSULE ER 20 MEQ PO (16:04)
--- NOTE | 2021-12-08 17:05 | PC.NURSE ---
PATIENT ALERT TO SELF, WHEEZING UPON FIRST ASSESSMENT, NEBULIZER GIVEN, USP THROUGH TREATMENT THAT ENOUGH NO MORE, NO MORE WHEEZING, TOO OFF NEB MASK, ON RA WITH SATURATIONS 90% AND GREATER, AROUND 1700 HR 115S-140S, MD UPDATED SEE NEW ORDERS, AROUND 1500 LOW BLOOD PRESSURE MD UPDATED SEE CHANGES TO ORDERS, USING BEDPAN DUE TO WHEEZING AND LOW BLOOD PRESSURE, AT BEDSIDE, DECLINING PAIN.
[2021-12-08] MEDS: dilTIAZem 5 MG/ML inj IVP (17:12)
--- NOTE | 2021-12-08 17:32 | RESP.RT ---
Patient has an increased respiratory rate 25-35 and has an audible wheeze. Patient also has very swollen legs and has wet lung sounds. Patient is getting water off, but may need to use CPAP if she become even more wet and labored breathing increases.
--- NOTE | 2021-12-08 19:48 | PC.NURSE ---
Notified Dr. Parker of pt.'s vitals, BP 121/106, HR 92, satting 97% on 1L NC. noted pt. received 10mg from the 40mg Lasix IVP order because of low blood pressures. stated OK to give 100mg metoprolol at 2100 and hold any further lasix administration at this time. Will continue to monitor
[2021-12-08] MEDS: TRAZODONE HCL 50 MG TABLET PO (20:48)
--- NOTE | 2021-12-08 23:33 | PC.NURSE ---
Notified Dr. Parker of pt.'s HR 130's-140's non-sustained, decreases back down to 100's. noted pt. received metoprolol 100mg PO at 2100. stated continue to monitor for now, but notify if HR continues to remain high
[2021-12-09] MEDS: METOPROLOL TARTRATE 1 MG/ML inj 5 MG IVP (01:57)
[2021-12-09 03:00] VITALS: BP 108/82; PULSE 116; RESP 20; TEMP 37.1; O2SAT 95
--- NOTE | 2021-12-09 05:42 | PC.NURSE ---
Shift 7p-7a: Pt. AOx1, following commands, pt. satting > 95% on 0.5L NC, pt. in A.Fib with HR 90's-120's. Overnight, noted pt.'s HR increasing to 140's non-sustained, ordered for metoprolol 5mg IVP once. Pt. has intermittent outbursts of anger/profanity, but otherwise pleasant when needing assistance. Pt. using bedpan, voiding well. No c/o pain, turned and repositioned q2h and PRN. Lung sounds diminished with inspiratory/expiratory wheezing and tachypnic upon exertion, but pt. denies feeling SOB. Oxygen saturation adequate overnight, no escalation required.
[2021-12-09 06:39] LABS: Basophils Absolute Auto 0.07 K/uL (0.00-0.30); Basophils Percent Auto 0.9 % (0.0-3.0); Eosinophils Absolute Auto 0.34 K/uL (0.00-0.50); Eosinophils Percent Auto 4.3 % (0.0-7.0); Hematocrit 30.9 % (33.0-51.0); Hemoglobin* 9.8 gm/dL (12.0-16.0); Immature Granulocytes Abs Auto 0.02 K/uL (0.00-0.30); Immature Reticulocyte Fraction 23.7 % (3.0-15.9); Lymphocytes Percent Auto 19.6 % (20-44); Mean Corpuscular HGB Conc 32 gm/dL (32-36); Mean Corpuscular Hemoglobin 32 pg (26-34); Mean Corpuscular Volume 100 fL (80-100); Monocytes Percent Auto 10.1 % (0.0-11.0); Neutrophils Absolute Auto 5.13 K/uL (1.7-7.0); Neutrophils Percent Auto 64.8 % (42.0-72.0); Platelet Count* 244 K/uL (140-440); RDW Coefficient of Variation % 16.2 % (11.5-15.5); Red Blood Count 3.09 m/uL (4.00-5.20); Reticulocyte Hemoglobin Equivi 30.8 pg (29.0-35.0); Reticulocyte Percent 3.4 % (0.5-2.0); Reticulocytes Absolute 0.11 # (0.03-0.08); White Blood Count* 7.91 K/uL (4.50-11.00)
[2021-12-09 06:40] LABS: Slide Review Reflex No
[2021-12-09 07:00] VITALS: BP 111/85; PULSE 96; PULSE 98; RESP 20; TEMP 37; O2SAT 91; O2SAT 94
[2021-12-09 07:01] LABS: Chloride* 100 mmol/L (96-114); Potassium* 3.9 mmol/L (3.6-5.1); Sodium* 138 mmol/L (135-149)
[2021-12-09 07:04] LABS: Blood Urea Nitrogen* 23 mg/dL (7-30); Calcium* 8.3 mg/dL (8.4-10.6); Carbon Dioxide* 31 mmol/L (20-32); Est. Creatinine Clearance* 38.97; Estimated Glomerular Filt Rate 58 ml/min; Glucose* 94 mg/dL (60-115)
[2021-12-09 07:22] LABS: Iron* 50 ug/dL (37-170)
[2021-12-09 07:31] LABS: Percent Iron Saturation 18 % (20-50); Total Iron Binding Capacity 275 ug/dL (265-497)
[2021-12-09 07:43] VITALS: PULSE 96
[2021-12-09] MEDS: DIGOXIN 250 MCG TABLET 500 MCG PO (07:43)
[2021-12-09] MEDS: OMEPRAZOLE 20 MG CAPSULE DR PO (07:43)
[2021-12-09] MEDS: POTASSIUM CHLORIDE 10 MEQ CAPSULE ER PO (07:44)
[2021-12-09 07:52] LABS: Vitamin B12* 558 pg/mL (243-894)
[2021-12-09] MEDS: TORSEMIDE 20 MG TABLET 40 MG PO (09:21)
[2021-12-09] MEDS: CITALOPRAM HYDROBROMIDE 20 MG TABLET 10 MG PO (09:21)
[2021-12-09 09:22] VITALS: TEMP 36.8
[2021-12-09] MEDS: SENNOSIDES 1 TAB TABLET PO (09:22)
[2021-12-09] MEDS: ACETAMINOPHEN 500 MG TABLET 1000 MG PO (09:22)
[2021-12-09] MEDS: OLANZapine 5 MG TAB.RAPDIS PO (09:23)
[2021-12-09] MEDS: METOPROLOL SUCCINATE (XL) 100 MG TAB PO (09:23)
--- NOTE | 2021-12-09 09:33 | PM.DS1 ---
DS: Providers Provider Date Seen: 12/09/21 Date of admission: 12/08/21 09:24 Primary care physician: Dr Barreto Admitting Clinician: Brady Parker MD Attending Physician on discharge: Brady Parker MD Date of Discharge: 12/09/21 DS: Diagnosis Discharge Diagnosis (1) HFrEF (heart failure with reduced ejection fraction): Status: Acute Problem details: Echocardiogram 03/21/2021 shows severely decreased left ventricular systolic function with an ejection fraction of 25%. Right ventricle size is normal and function is reduced. No significant valvular disease (2) Atrial fibrillation with rapid ventricular response: Status: Acute Problem details: On metoprolol for rate control and previously on apixaban for stroke prophylaxis. This was discontinued due to his fall risk. Had rate control problems here. Started on digoxin plus metoprolol for rate control. Will need close followup of pulse and titration of metoprolol if patient gets bradycardia. (3) Macrocytic anemia: Status: Acute Problem details: Patient had no evidence of bleeding during this hospital stay. The cause for her drop in hemoglobin from 14.8-10 in the last month is unknown. (4) Hyperkalemia: Status: Acute Problem details: Resolved with increased diuresis (5) Stage 3 chronic kidney disease: Status: Acute Problem details: Stable (6) Dementia: Status: Acute Problem details: Severe. Garland of 8. (7) Lower extremity weakness: Status: Acute Problem details: Patient has had progressive disability following her hospitalization 1 month ago with lumbar compression fractures. Previously ambulatory. Now heavy assist of 2 for transfers. (8) End of life care: Status: Acute Problem details: I discussed with the patient's and power of commercial litigation attorney her very poor health status with severe dementia, heart failure, new anemia, severe disability due to leg weakness. I also noted that the patient has historically not wanted to be hospitalized and received medical treatment. I recommended that he have a conversation with other family members to discuss goals of care, code status and what she would want for end of life care. DS: Summary Hospital Course Hospital Course: 76-year-old female admitted to the hospital with heart failure. She had pulmonary edema on her chest x-ray and was experiencing worsening dyspnea and hypoxia. She was found to have increased heart rate. This was thought possibly due to her heart failure exacerbation as well as missing 1 of her metoprolol doses. Resuming metoprolol however did not resolve this problem and so she was started on digoxin to see if her resting heart rate could be maintained below 100. Her diuretic was also increased. She was noted to have a hemoglobin of 10. Her MCV was 100. This was stable during her hospital stay. Her stool guaiac was negative. Retic count was 3.4%. Iron saturation was 18%, borderline low. B12 level was 558. Folate pending. Cause for her new macrocytic anemia was not determined. Status at Discharge Functional status at discharge: bed bound Overall status at discharge: patient is back to baseline (Severe dementia, Garland 12/13) Time Spent with Patient Time attestation: Total time spent providing and/or coordinating discharge services: Time spent: Greater than 30 minutes Exam Narrative: Exam Narrative: She is alert and disoriented. She is breathing comfortably on supplemental oxygen. She is attempting unsuccessfully to get out of bed. Respirations are clear to auscultation. Cardiovascular: S1, S2, irregularly irregular. Abdomen: Bowel sounds active. Abdomen is soft without tenderness. Umbilical hernia is nontender and soft. Extremities with trace edema. Const: Vital Signs, click to edit/add: Vital Signs - 24 hr 12/08/21 10:47 12/08/21 10:48 12/08/21 10:50 Temperature Pulse Rate Pulse Rate [Pulse Oximeter] Respiratory Rate Blood Pressure [Le ft Arm] 74/54 L Blood Pressure [Ri ght Arm] 89/72 L 73/52 L Pulse Oximetry Oxygen Delivery Me thod Oxygen Flow Rate 12/08/21 13:20 12/08/21 15:00 12/08/21 15:00 Temperature 97.6 F Pulse Rate 107 H Pulse Rate [Pulse Oximeter] 109 H 107 H Respiratory Rate 22 24 Blood Pressure [Le ft Arm] 112/75 Blood Pressure [Ri ght Arm] Pulse Oximetry 95 Oxygen Delivery Me thod Nasal Cannula Oxygen Flow Rate 1 12/08/21 15:00 12/08/21 15:00 12/08/21 17:04 Temperature 97.7 F Pulse Rate Pulse Rate [Pulse Oximeter] 124 H Respiratory Rate 20 20 Blood Pressure [Le ft Arm] 95/60 112/90 H Blood Pressure [Ri ght Arm] Pulse Oximetry 91 91 Oxygen Delivery Me thod Room Air Room Air Oxygen Flow Rate 0 0 08/25/22 17:28 12/08/21 19:00 12/08/21 23:00 Temperature 97.7 F Pulse Rate 107 H Pulse Rate [Pulse Oximeter] 92 Respiratory Rate 20 Blood Pressure [Le ft Arm] Blood Pressure [Ri ght Arm] 121/106 H Pulse Oximetry 94 97 Oxygen Delivery Me thod Nasal Cannula Nasal Cannula Oxygen Flow Rate 1 12/08/21 23:00 12/08/21 23:00 12/08/21 23:00 Temperature 98.7 F Pulse Rate Pulse Rate [Pulse Oximeter] 111 H 111 H Respiratory Rate 20 22 22 Blood Pressure [Le ft Arm] Blood Pressure [Ri ght Arm] 111/73 Pulse Oximetry 96 96 Oxygen Delivery Me thod Nasal Cannula Nasal Cannula Oxygen Flow Rate 1 1 12/09/21 03:00 12/09/21 07:43 12/09/21 07:00 Temperature 98.8 F 98.6 F Pulse Rate 96 Pulse Rate [Pulse Oximeter] 116 H 98 Respiratory Rate 20 20 Blood Pressure [Le ft Arm] 111/85 Blood Pressure [Ri ght Arm] 108/82 Pulse Oximetry 95 94 Oxygen Delivery Me thod Nasal Cannula Nasal Cannula Oxygen Flow Rate 0.5 0.5 12/09/21 09:22 Temperature 98.3 F Pulse Rate Pulse Rate [Pulse Oximeter] Respiratory Rate Blood Pressure [Le ft Arm] Blood Pressure [Ri ght Arm] Pulse Oximetry Oxygen Delivery Me thod Oxygen Flow Rate Documenting provider has reviewed patient's vital signs: yes DS: Data Data Completed and Pending Labs on day of discharge: Labs from last 24 hours 12/09/21 12/09/21 12/09/21 05:58 05:58 05:58 WBC 7.91 RBC 3.09 L Hgb 9.8 L Hct 30.9 L MCV 100 MCH 32 MCHC 32 RDW Coeff of Andres 16.2 H Plt Count 244 Neut % (Auto) 64.8 Lymph % (Auto) 19.6 L Montgomery % (Auto) 10.1 Eos % (Auto) 4.3 Baso % (Auto) 0.9 Neut # (Auto) 5.13 Lymph # (Auto) 1.60 Montgomery # (Auto) 0.80 Eos # (Auto) 0.34 Baso # (Auto) 0.07 Abs Immat Gran (auto) 0.02 Absolute Retic 0.11 H Percent Retic 3.4 H Immature Retic Fraction 23.7 H Retic Hgb Equivalent 30.8 Sodium 138 Potassium 3.9 Chloride 100 Carbon Dioxide 31 BUN 23 Creatinine 1.0 Estimated Creat Clear 38.97 Estimated GFR 58 Glucose 94 Calcium 8.3 L Iron 50 TIBC 275 % Saturation 18 L Vitamin B12 558 RBC Fol Jacqueline for Serum 12/09/21 05:58 WBC RBC Hgb Hct MCV MCH MCHC RDW Coeff of Andres Plt Count Neut % (Auto) Lymph % (Auto) Montgomery % (Auto) Eos % (Auto) Baso % (Auto) Neut # (Auto) Lymph # (Auto) Montgomery # (Auto) Eos # (Auto) Baso # (Auto) Abs Immat Gran (auto) Absolute Retic Percent Retic Immature Retic Fraction Retic Hgb Equivalent Sodium Potassium Chloride Carbon Dioxide BUN Creatinine Estimated Creat Clear Estimated GFR Glucose Calcium Iron TIBC % Saturation Vitamin B12 RBC Fol Jacqueline for Serum Pending Discharge Plan Discharge Disposition: [facility] Date of Admission: 12/08/21 09:24 Attending Provider on Discharge: Ted Gramajo Primary Care Provider: Jennifer Sanchez Condition: Stable Discharge Medications: New digoxin 125 mcg (0.125 mg) Tablet 125 mcg PO DAILY Qty: 30 0RF omeprazole 20 mg Capsule,Delayed Release(Dr/Ec) 20 mg PO DAILY@0700 Qty: 30 0RF Continued potassium chloride [Klor-Con M20] 20 mEq tablet,ER particles/crystals 20 meq PO DAILY metoprolol succinate 100 mg tablet extended release 24 hr 100 mg PO BID acetaminophen 500 mg Tablet 1,000 mg PO TID Qty: 90 0RF calcitonin (salmon) 200 unit/actuation Marceline,Non-Aerosol 1 spray intranasal HS Qty: 3.7 3RF citalopram 20 mg Tablet 10 mg PO DAILY Qty: 30 0RF oxycodone 5 mg Tablet 2.5 mg PO Q6H PRNQty: 30 0RF Rx Instructions: give 2.5 to 5mg q 6-8 hours prn knee, pelvic, back pain trazodone 50 mg Tablet 50 mg PO HS Qty: 30 0RF Label Comments: and as needed x 1 dose Calcium 600 + D(3) 600 mg-5 mcg (200 unit) capsule 1 cap PO DAILY albuterol sulfate 2.5 mg /3 mL (0.083 %) solution for nebulization 2.5 mg inhalation Q4H PRN guaifenesin [Adult Tussin Chest Congestion] 100 mg/5 mL liquid 400 mg PO DAILY olanzapine 5 mg Tablet,Disintegrating 5 - 10 mg PO BID Label Comments: 5 mg in the am 10 mb in the pm Changed torsemide 20 mg tablet 40 mg PO DAILY Qty: 60 0RF Discharge Orders: Discharge Order (Routine); Ordered 12/09/21 Ordered By: Ted Gramajo Activity Restrictions/Additional Instructions: Check labs in 5 days: CBC, basic metabolic panel, digoxin level. Check pulse twice daily before giving metoprolol. Hold metoprolol if pulse is less than 60. Oxygen at 1 L per nasal cannula to keep O2 sats above 90 Activity Level: Up with assist Discharge Diet: 2 gm Sodium Follow Up Appointments: Jennifer Sanchez, DAYNE, PROJECT CONSULTANT [Primary Care Provider] -
[2021-12-09 10:35] VITALS: BP 111/83; PULSE 96; RESP 20; TEMP 36.8
--- NOTE | 2021-12-09 13:23 | PC.NURSE ---
Patient up to the BR with the easy stand, tolerates fair. Pt oriented to self only. Takes pills whole with water. [facility] [place] [facility]. Patient's at bedside and will follow ambulance. All belongings sent.
--- NOTE | 2021-12-09 17:03 | PC.SOCIAL ---
Phone call to [facility]. Obtained information on the [facility]'s pharmacy ([employer] [phone]). Provided information to charge nurse. Went into room and spoke to pt and pt's . Pt's does not think he can physically transport pt due to her level of care needed and asks if she can get an ambulance transport back to the [facility]. Discussed with charge nurse and pt meets criteria to transport in non-emergent ambulance. Provided information to pt. and pt's . Charge nurse will set up the transport and communicate with the [facility] on discharge.
[2021-12-12 17:29] LABS: Folate, Serum 17.1 ng/mL (>=5.9)
== END 2021-12-09 14:32 | DRG 291 ==
LOC: ED 22:19 → MEDSURG 12-08 00:47
PROVIDERS: Family Medicine; Internal Medicine; Admitting Provider Internal Medicine; Emergency Provider Family Medicine; PCP Nurse Practitioner Family; Visit Provider Internal Medicine
DX: I13.0 Hypertensive heart and chronic kidney disease with heart failure and stage 1 through stage 4 chronic kidney disease, or unspecified chronic kidney disease (principal); I50.23 Acute on chronic systolic (congestive) heart failure; N18.30 Chronic kidney disease, stage 3 unspecified; I48.91 Unspecified atrial fibrillation; Z79.01 Long term (current) use of anticoagulants; E87.5 Hyperkalemia; D53.9 Nutritional anemia, unspecified; F03.90 Unspecified dementia, unspecified severity, without behavioral disturbance, psychotic disturbance, mood disturbance, and anxiety; R53.1 Weakness; S32.000D Wedge compression fracture of unspecified lumbar vertebra, subsequent encounter for fracture with routine healing; F32.A Depression, unspecified; J44.9 Chronic obstructive pulmonary disease, unspecified; I71.2 Thoracic aortic aneurysm, without rupture
CPT/HCPCS: 36415; 71045; 71260; 80048; 82607; 82746; 83540; 83550; 83880; 84484; 85025; 85045; 85379; 85610; 85730; 87502; 87634; 87635; 93005; 94640; 97162; 97165; 97530; 99285; G0378; A9270; J1940; J7120; Q9967

== ENCOUNTER 2021-12-09 11:38 | Outpatient (CLI) | payer MEDICARE, SELFPAY | END 2021-12-09 11:39 | disposition home or self-care (01) | LOC: AMB 12-11 16:45 | PROVIDERS: PCP Nurse Practitioner Family; Visit Provider Internal Medicine | DX: F03.90 Unspecified dementia, unspecified severity, without behavioral disturbance, psychotic disturbance, mood disturbance, and anxiety (principal) | CPT/HCPCS: A0425; A0428 ==